=== PATIENT | male | born 1945 | race Caucasian/White ===

== ENCOUNTER 2017-07-23 15:16 | Inpatient (IN) | payer MEDICARE ==
--- NOTE | 2017-07-23 16:56 | C.PDOC ---
History Of Present Illness 71 year old male sent to ED by PMD, Dr. Hightower, for evaluation of dysuria, and hypothermia since yesterday. Pt states his temperature at PMD office was about 93-94. Otherwise, denies n/v/d, abdominal pain, back pain, urinary frequency, or hematuria. Time Seen by Provider: 07/23/17 16:31 Chief Complaint (Nursing): Male Genitourinary History Per: Patient History/Exam Limitations: no limitations Onset/Duration Of Symptoms: Days Current Symptoms Are (Timing): Still Present Associated Symptoms: Urinary Symptoms. denies: Loss Of Appetite, Back Pain, Chest Pain, Constipation Alleviating Factors: None Recent travel outside of the [place]: No Additional History Per: Patient Past Medical History Reviewed: Historical Data, Nursing Documentation, Vital Signs Vital Signs: Last Vital Signs Temp 97.9 F 07/23/17 18:26 Pulse 67 07/23/17 18:26 Resp 16 07/23/17 18:26 BP 150/65 07/23/17 18:26 Pulse Ox 100 07/23/17 18:43 Family History: States: Unknown Family Hx - Social History Hx Alcohol Use: Yes Hx Substance Use: No - Immunization History Hx Tetanus Toxoid Vaccination: No Hx Influenza Vaccination: No Hx Pneumococcal Vaccination: No Review Of Systems Except As Marked, All Systems Reviewed And Found Negative. Constitutional: Positive for: Chills. Negative for: Fever Cardiovascular: Negative for: Chest Pain, Palpitations Respiratory: Negative for: Cough, Shortness of Breath Gastrointestinal: Negative for: Nausea, Vomiting, Abdominal Pain, Diarrhea Genitourinary: Positive for: Dysuria. Negative for: Frequency, Hematuria, Penile Discharge Musculoskeletal: Negative for: Back Pain Neurological: Negative for: Headache, Dizziness Physical Exam - Physical Exam Appears: Non-toxic, No Acute Distress Skin: Normal Color, Warm, Dry Head: Atraumatic, Normacephalic Eye(s): bilateral: Normal Inspection Oral Mucosa: Moist Neck: Supple Cardiovascular: Rhythm Regular, No Murmur Respiratory: Normal Breath Sounds, No Rales, No Rhonchi, No Wheezing Gastrointestinal/Abdominal: Soft, No Tenderness Back: Normal Inspection, No CVA Tenderness Extremity: Normal ROM, No Pedal Edema Neurological/Psych: Oriented x3, Normal Speech ED Course And Treatment - Laboratory Results Result Diagrams: 07/23/17 17:32 07/23/17 17:32 O2 Sat by Pulse Oximetry: 100 (RA) Pulse Ox Interpretation: Normal Progress Note: Blood work, UA, EKG ordered and reviewed. On reassessment, patient is resting comfortably, and is in no acute distress. case was d/w Pt's PMD who sts patient recently started on Acetazolomide for glaucoma and it might be a cause of metabolic acidosis. requested patient to go to [place] for observation on the service. was paged at 18: 40, called back, accepted patient to [place] for observation and IV hydration. Disposition - Disposition Disposition: HOSPITALIZED Disposition Time: 18:43 Condition: FAIR Forms: [facility] (Belarusian) - Clinical Impression Clinical Impression: Dysuria, Metabolic acidosis - PA / DATA COMMUNICATIONS ANALYST / Resident Statement MD/DO has reviewed & agrees with the documentation as recorded. - Scribe Statement The provider has reviewed the documentation as recorded by the Scribe Alondra Mcclelland All medical record entries made by the Scribe were at my direction and personally dictated by me. I have reviewed the chart and agree that the record accurately reflects my personal performance of the history, physical exam, medical decision making, and the department course for this patient. I have also personally directed, reviewed, and agree with the discharge instructions and disposition. Decision To Admit - Pt Status Changed To: Hospital Disposition Of: Observation - . Bed Request Type: Regular Admitting Physician: Danny Martin Patient Diagnosis: Dysuria, Metabolic acidosis
[2017-07-23 17:31] LABS: VENOUS BLOOD GAS BASE EXCESS -10.4 mmol/L (0.0-2.0); VENOUS BLOOD GAS PCO2 50 mmHg (40-60); VENOUS BLOOD GAS PO2 13 mm/Hg (30-55); VENOUS BLOOD PH 7.17 (7.32-7.43)
[2017-07-23 17:37] LABS: BASO # 0.1 K/uL (0.0-0.2); BASO % 0.6 % (0.0-2.0); EOS # 0.2 K/uL (0.0-0.7); EOS % 1.9 % (0.0-4.0); LYMPH # 1.9 K/uL (1.0-4.3); LYMPH % 21.2 % (20.0-40.0); MEAN CELL VOLUME 89.3 fL (80.0-94.0); MEAN CORPUSCULAR HEMOGLOBIN 30.2 pg (27.0-31.0); MEAN CORPUSCULAR HGB CONC 33.8 g/dL (33.0-37.0); MEAN PLATELET VOLUME 8.9 fL (7.2-11.7); MONO # 0.4 K/uL (0.0-0.8); MONO % 4.7 % (0.0-10.0); NEUT # 6.5 K/uL (1.8-7.0); NEUT % 71.6 % (50.0-75.0); RBC 5.3 Mil/uL (4.40-5.90); RED CELL DISTRIBUTION WIDTH 13.1 % (11.5-14.5); WHITE BLOOD COUNT 9.1 K/uL (4.8-10.8)
[2017-07-23 17:44] LABS: URINE BILIRUBIN NEGATIVE (NEGATIVE); URINE BLOOD NEGATIVE (NEGATIVE); URINE CLARITY Clear (Clear); URINE COLOR Straw (YELLOW); URINE GLUCOSE (UA) 3+ mg/dL (Normal); URINE LEUKOCYTE ESTERASE NEG Leu/uL (Negative); URINE NITRATE NEGATIVE (NEGATIVE); URINE PROTEIN NEGATIVE (NEGATIVE); URINE UROBILINOGEN NORMAL mg/dL (0.2-1.0)
[2017-07-23 17:46] LABS: PROTHROMBIN TIME 11.6 SECONDS (9.7-12.2)
[2017-07-23 18:12] LABS: ALB/GLOB RATIO 1.2 (1.0-2.1); ALBUMIN 4.6 g/dL (3.5-5.0); ALT/SGPT 31 U/L (21-72); AST/SGOT 26 U/L (17-59); BLOOD UREA NITROGEN 15 mg/dL (9-20); CALCIUM 9.1 mg/dl (8.6-10.4); GFR AFRICAN-AMERICAN > 60; GFR NON-AFRICAN AMERICAN > 60; MAGNESIUM 1.8 mg/dL (1.6-2.3)
--- NOTE | 2017-07-23 18:17 | RAD ---
HISTORY: hypotermia by PMD, Metab Acidosis COMPARISON: No prior. TECHNIQUE: Chest PA and lateral FINDINGS: LUNGS: No active pulmonary disease. PLEURA: No significant pleural effusion identified. No pneumothorax apparent. CARDIOVASCULAR: Normal. OSSEOUS STRUCTURES: No significant abnormalities. VISUALIZED UPPER ABDOMEN: Normal. OTHER FINDINGS: None. IMPRESSION: No active disease.
[2017-07-23 18:30] LABS: ABG ALLEN TEST YES; ARTERIAL BLOOD GAS HCO3 15.3 mmol/L (21-28); ARTERIAL BLOOD GAS HEMOGLOBIN 14.5 g/dL (11.7-17.4); ARTERIAL BLOOD GAS O2 SAT 97.3 % (95-98); ARTERIAL BLOOD GAS PCO2 26 mm/Hg (35-45); ARTERIAL BLOOD GAS PH 7.29 (7.35-7.45); ARTERIAL BLOOD GAS PO2 124 mm/Hg (80-100); ARTERIAL BLOOD GAS TCO2 13.3 mmol/L (22-28)
[2017-07-23] MEDS ORDERED: Sodium Chloride 0.9% 1,000 ML IV STA (18:33)
[2017-07-23 20:36] VITALS: RESP 20
[2017-07-23] MEDS ORDERED: Dextrose 5%/0.9% NS 1,000 ML IV SCH (21:00)
--- NOTE | 2017-07-23 22:47 | CP.PCM.HP ---
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 Hightower, for evaluation of dysuria, and hypothermia since yesterday. Pt states his temperature at PMD office was about 93-94. Otherwise, denies n/v/d, abdominal pain, back pain, urinary frequency, or hematuria.He was found to be weak, alterred, confused, tacycardic in PMD office also complains of bad taste in mouth denies any fever, chills, chest pain Present on Admission - Present on Admission Any Indicators Present on Admission: Yes Review of Systems - Review of Systems Systems not reviewed;Unavailable: Acuity of Condition - Constitutional Constitutional: Fatigue, Lethargy, Malaise - EENT Eyes: Change in Vision Ears: absent: As Per HPI, Decreased Hearing, Ear Discharge, Ear Pain, Tinnitus, Abnormal Hearing, Disequilibrium, Dizziness, Other Nose/Mouth/Throat: absent: As Per HPI, Epistaxis, Nasal Congestion, Nasal Discharge, Nasal Obstruction, Nasal Trauma, Nose Pain, Post Nasal Drip, Sinus Pain, Sinus Pressure, Bleeding Gums, Change in Voice, Dental Pain, Dry Mouth, Dysphagia, Halitosis, Hoarsness, Lip Swelling, Mouth Lesions, Mouth Pain, Odynophagia, Sore Throat, Throat Swelling, Tongue Swelling, Facial Pain, Neck Pain, Neck Mass, Other - Cardiovascular Cardiovascular: absent: As Per HPI, Acrocyanosis, Chest Pain, Chest Pain at Rest , Chest Pain with Activity, Claudication, Diaphoresis, Dyspnea, Dyspnea on Exertion, Edema, Irregular Heart Rhythm, Pain Radiating to Arm/Neck/Jaw, Leg Edema, Leg Ulcers, Lightheadedness, Orthopnea, Palpitations, Paroxysmal Nocturnal Dyspnea, Pedal Edema, Radiating Pain, Rapid Heart Rate, Slow Heart Rate, Syncope, Other - Respiratory Respiratory: absent: As Per HPI, Cough, Dyspnea, Hemoptysis, Dyspnea on Exertion , Wheezing, Snoring, Stridor, Pain on Inspiration, Chest Congestion, Excessive Mucous Production, Change in Mucous Color, Pain with Coughing, Other - Gastrointestinal Gastrointestinal: absent: As Per HPI, Abdominal Pain, Belching, Bloating, Change in Bowel Habits, Change in Stool Character, Coffee Ground Emesis, Constipation, Cramping, Diarrhea, Dyspepsia, Dysphagia, Early Satiety, Excessive Flatus, Fecal Incontinence, Heartburn, Hematemesis, Hematochezia, Loose Stools, Melena, Nausea, Odynophagia, Temesmus, Vomiting, Other - Genitourinary Genitourinary: Dysuria Past Patient History - Past Social History Smoking Status: Never Smoked - ENDOCRINE/METABOLIC Hx Diabetes Mellitus Type 2: Yes - PSYCHIATRIC Hx Substance Use: No - SURGICAL HISTORY Hx Surgeries: No - ANESTHESIA Hx Anesthesia: No Meds Allergies/Adverse Reactions: Allergies Allergy/AdvReac Type Severity Reaction Status Date / Time No Known Allergies Allergy Verified 07/23/17 16:03 Physical Exam - Constitutional Appears: No Acute Distress - Head Exam Head Exam: ATRAUMATIC, NORMAL INSPECTION, NORMOCEPHALIC - Eye Exam Eye Exam: EOMI, Normal appearance, PERRL Pupil Exam: NORMAL ACCOMODATION, PERRL - Respiratory Exam Respiratory Exam: Clear to Auscultation Bilateral, NORMAL BREATHING PATTERN - Cardiovascular Exam Cardiovascular Exam: REGULAR RHYTHM - GI/Abdominal Exam GI & Abdominal Exam: Normal Bowel Sounds, Soft. absent: Tenderness Results - Vital Signs Recent Vital Signs: Last Vital Signs Temp 97.3 F L 07/23/17 20:34 Pulse 61 07/23/17 20:34 Resp 20 07/23/17 20:34 BP 157/82 H 07/23/17 20:34 Pulse Ox 100 07/23/17 20:34 - Labs Result Diagrams: 07/24/17 07:55 07/24/17 07:55 Labs: Laboratory Results - last 24 hr 07/23/17 07/23/17 07/23/17 17:25 17:32 17:32 WBC 9.1 RBC 5.30 Hgb 16.0 Hct 47.3 MCV 89.3 MCH 30.2 MCHC 33.8 RDW 13.1 Plt Count 328 MPV 8.9 Neut % (Auto) 71.6 Lymph % (Auto) 21.2 Stone % (Auto) 4.7 Eos % (Auto) 1.9 Baso % (Auto) 0.6 Neut # 6.5 Lymph # 1.9 Stone # 0.4 Eos # 0.2 Baso # 0.1 PT INR APTT Puncture Site pCO2 pO2 13 L HCO3 ABG pH ABG Total CO2 ABG O2 Saturation ABG Base Excess ABG Hemoglobin ABG Carboxyhemoglobin POC ABG HHb (Measured) ABG Methemoglobin Osbaldo Test VBG pH 7.17 L* VBG pCO2 50 VBG HCO3 14.4 VBG Total CO2 19.7 L VBG O2 Sat (Calc) 19.2 L VBG Base Excess -10.4 L VBG Potassium 3.9 A-a O2 Difference Respiratory Index Hgb O2 Saturation Sodium 137.0 135 Chloride 108.0 H 105 Glucose 225 H Lactate 1.2 FiO2 Crit Value Called To Doyle aaron Crit Value Called By Sherrill naik dining services director Crit Value Read Back Y Blood Gas Notified Time 1730 Potassium 3.9 Carbon Dioxide 18 L Anion Gap 16 BUN 15 Creatinine 0.8 Est GFR ( Amer) > 60 Est GFR (Non-Af Amer) > 60 Random Glucose 218 H Lactic Acid Calcium 9.1 Phosphorus 2.8 Magnesium 1.8 Total Bilirubin 0.6 AST 26 ALT 31 Alkaline Phosphatase 75 Total Protein 8.4 H Albumin 4.6 Globulin 3.8 Albumin/Globulin Ratio 1.2 Venous Blood Potassium 3.9 Urine Color Urine Clarity Urine pH Ur Specific [place] Urine Protein Urine Glucose (UA) Urine Ketones Urine Blood Urine Nitrate Urine Bilirubin Urine Urobilinogen Ur Leukocyte Esterase Urine WBC (Auto) Urine RBC (Auto) Salicylates Alcohol, Quantitative 07/23/17 07/23/17 07/23/17 17:32 17:32 17:38 WBC RBC Hgb Hct MCV MCH MCHC RDW Plt Count MPV Neut % (Auto) Lymph % (Auto) Stone % (Auto) Eos % (Auto) Baso % (Auto) Neut # Lymph # Stone # Eos # Baso # PT 11.6 INR 1.0 APTT 34 Puncture Site pCO2 pO2 HCO3 ABG pH ABG Total CO2 ABG O2 Saturation ABG Base Excess ABG Hemoglobin ABG Carboxyhemoglobin POC ABG HHb (Measured) ABG Methemoglobin Osbaldo Test VBG pH VBG pCO2 VBG HCO3 VBG Total CO2 VBG O2 Sat (Calc) VBG Base Excess VBG Potassium A-a O2 Difference Respiratory Index Hgb O2 Saturation Sodium Chloride Glucose Lactate FiO2 Crit Value Called To Crit Value Called By Crit Value Read Back Blood Gas Notified Time Potassium Carbon Dioxide Anion Gap BUN Creatinine Est GFR ( Amer) Est GFR (Non-Af Amer) Random Glucose Lactic Acid 0.9 Calcium Phosphorus Magnesium Total Bilirubin AST ALT Alkaline Phosphatase Total Protein Albumin Globulin Albumin/Globulin Ratio Venous Blood Potassium Urine Color Straw Urine Clarity Clear Urine pH 6.0 Ur Specific [place] 1.020 Urine Protein Negative Urine Glucose (UA) 3+ H Urine Ketones Negative Urine Blood Negative Urine Nitrate Negative Urine Bilirubin Negative Urine Urobilinogen Normal Ur Leukocyte Esterase Neg Urine WBC (Auto) 1 Urine RBC (Auto) 1 Salicylates Alcohol, Quantitative 07/23/17 07/23/17 07/23/17 18:20 18:48 18:55 WBC RBC Hgb Hct MCV MCH MCHC RDW Plt Count MPV Neut % (Auto) Lymph % (Auto) Stone % (Auto) Eos % (Auto) Baso % (Auto) Neut # Lymph # Stone # Eos # Baso # PT INR APTT Puncture Site Lba pCO2 26 L pO2 124 H HCO3 15.3 L ABG pH 7.29 L ABG Total CO2 13.3 L ABG O2 Saturation 97.3 ABG Base Excess -12.3 L ABG Hemoglobin 14.5 ABG Carboxyhemoglobin 0.3 L POC ABG HHb (Measured) 2.7 ABG Methemoglobin 0.1 Osbaldo Test Yes VBG pH VBG pCO2 VBG HCO3 VBG Total CO2 VBG O2 Sat (Calc) VBG Base Excess VBG Potassium A-a O2 Difference -7.0 Respiratory Index -0.1 Hgb O2 Saturation 96.9 Sodium Chloride Glucose Lactate FiO2 21.0 Crit Value Called To Crit Value Called By Crit Value Read Back Blood Gas Notified Time Potassium Carbon Dioxide Anion Gap BUN Creatinine Est GFR ( Amer) Est GFR (Non-Af Amer) Random Glucose Lactic Acid Calcium Phosphorus Magnesium Total Bilirubin AST ALT Alkaline Phosphatase Total Protein Albumin Globulin Albumin/Globulin Ratio Venous Blood Potassium Urine Color Urine Clarity Urine pH Ur Specific [place] Urine Protein Urine Glucose (UA) Urine Ketones Urine Blood Urine Nitrate Urine Bilirubin Urine Urobilinogen Ur Leukocyte Esterase Urine WBC (Auto) Urine RBC (Auto) Salicylates < 1.0 Alcohol, Quantitative < 20 H Assessment & Plan (1) Drug side effects Assessment and Plan: Rule out fanconis syndrome due to Tenofovir renal consult Status: Acute (2) Dysuria Status: Acute (3) Metabolic acidosis Status: Acute
[2017-07-23] MEDS: Sodium Bicarbonate 8.4% 150 MEQ in Dextrose 5% In Water 1,000 ML IV SCH (22:49)
[2017-07-24 08:16] LABS: BASO % 0.7 % (0.0-2.0); EOS # 0.1 K/uL (0.0-0.7); LYMPH % 26.5 % (20.0-40.0); MEAN CORPUSCULAR HEMOGLOBIN 30.3 pg (27.0-31.0); MEAN CORPUSCULAR HGB CONC 34.8 g/dL (33.0-37.0); MEAN PLATELET VOLUME 8.9 fL (7.2-11.7); MONO # 0.5 K/uL (0.0-0.8); MONO % 7.3 % (0.0-10.0); NEUT # 4.8 K/uL (1.8-7.0); NEUT % 63.5 % (50.0-75.0); RBC 4.47 Mil/uL (4.40-5.90); RED CELL DISTRIBUTION WIDTH 12.8 % (11.5-14.5); WHITE BLOOD COUNT 7.5 K/uL (4.8-10.8)
[2017-07-24 08:30] LABS: BLOOD UREA NITROGEN 11 mg/dL (9-20); GFR AFRICAN-AMERICAN > 60; GFR NON-AFRICAN AMERICAN > 60; HEMOGLOBIN 13.5 g/dL (12.0-18.0)
[2017-07-24] MEDS: Enoxaparin 40 mg Syringe SC SCH (09:51)
[2017-07-24] MEDS: Sodium Bicarbonate 8.4% 150 MEQ in Dextrose 5% In Water 1,000 ML IV SCH ×2 (10:30→20:30)
--- NOTE | 2017-07-24 10:33 | CP.PCM.CON ---
History of Present Illness - History of Present Illness History of Present Illness: pt is seen and examined, full consult is dictated #[id number] r/o fanconi syndrome due to tenofovir , pt is on tenofovir for ch. hept.b from [facility] check u po4, serum phos, cr, will calculate FE phosphorous c/w iv nahco3 drip check u/s kidneys Past Patient History - Past Social History Smoking Status: Never Smoked - ENDOCRINE/METABOLIC Hx Diabetes Mellitus Type 2: Yes - PSYCHIATRIC Hx Substance Use: No - SURGICAL HISTORY Hx Surgeries: No - ANESTHESIA Hx Anesthesia: No Meds Allergies/Adverse Reactions: Allergies Allergy/AdvReac Type Severity Reaction Status Date / Time No Known Allergies Allergy Verified 07/23/17 16:03 - Medications Medications: Current Medications Enoxaparin Sodium (Lovenox) 40 mg SC DAILY [facility] Last Admin: 07/24/17 09:51 Dose: Not Given Sodium Bicarbonate 150 meq/ (Dextrose) 1,150 mls @ 100 mls/hr IV .[id number] [facility] Last Admin: 07/24/17 10:30 Dose: 100 mls/hr Pneumococcal Polyvalent Vaccine (Pneumovax 23 Vaccine) 0.5 ml IM .ONCE ONE Stop: 07/26/17 10:01 Results - Vital Signs Recent Vital Signs: Last Vital Signs Temp 97.7 F 07/24/17 08:02 Pulse 90 07/24/17 08:02 Resp 20 07/24/17 08:02 BP 117/65 07/24/17 08:02 Pulse Ox 92 L 07/24/17 08:02 - Labs Result Diagrams: 07/24/17 07:55 07/24/17 07:55 Labs: Laboratory Results - last 24 hr 07/23/17 07/23/17 07/23/17 17:25 17:32 17:32 WBC 9.1 RBC 5.30 Hgb 16.0 Hct 47.3 MCV 89.3 MCH 30.2 MCHC 33.8 RDW 13.1 Plt Count 328 MPV 8.9 Neut % (Auto) 71.6 Lymph % (Auto) 21.2 Bradley % (Auto) 4.7 Eos % (Auto) 1.9 Baso % (Auto) 0.6 Neut # 6.5 Lymph # 1.9 Bradley # 0.4 Eos # 0.2 Baso # 0.1 PT INR APTT Puncture Site pCO2 pO2 13 L HCO3 ABG pH ABG Total CO2 ABG O2 Saturation ABG Base Excess ABG Hemoglobin ABG Carboxyhemoglobin POC ABG HHb (Measured) ABG Methemoglobin Osbaldo Test VBG pH 7.17 L* VBG pCO2 50 VBG HCO3 14.4 VBG Total CO2 19.7 L VBG O2 Sat (Calc) 19.2 L VBG Base Excess -10.4 L VBG Potassium 3.9 A-a O2 Difference Respiratory Index Hgb O2 Saturation Sodium 137.0 135 Chloride 108.0 H 105 Glucose 225 H Lactate 1.2 FiO2 Crit Value Called To Doyle aaron Crit Value Called By Sherrill naik special diet cook Crit Value Read Back Y Blood Gas Notified Time 1730 Potassium 3.9 Carbon Dioxide 18 L Anion Gap 16 BUN 15 Creatinine 0.8 Est GFR ( Amer) > 60 Est GFR (Non-Af Amer) > 60 POC Glucose (mg/dL) Random Glucose 218 H Lactic Acid Calcium 9.1 Phosphorus 2.8 Magnesium 1.8 Total Bilirubin 0.6 AST 26 ALT 31 Alkaline Phosphatase 75 Total Protein 8.4 H Albumin 4.6 Globulin 3.8 Albumin/Globulin Ratio 1.2 Venous Blood Potassium 3.9 Urine Color Urine Clarity Urine pH Ur Specific [place] Urine Protein Urine Glucose (UA) Urine Ketones Urine Blood Urine Nitrate Urine Bilirubin Urine Urobilinogen Ur Leukocyte Esterase Urine WBC (Auto) Urine RBC (Auto) Urine Osmolality Ur Random Sodium Ur Random Potassium Salicylates Alcohol, Quantitative 07/23/17 07/23/17 07/23/17 17:32 17:32 17:38 WBC RBC Hgb Hct MCV MCH MCHC RDW Plt Count MPV Neut % (Auto) Lymph % (Auto) [place] % (Auto) Eos % (Auto) Baso % (Auto) Neut # Lymph # Bradley # Eos # Baso # PT 11.6 INR 1.0 APTT 34 Puncture Site pCO2 pO2 HCO3 ABG pH ABG Total CO2 ABG O2 Saturation ABG Base Excess ABG Hemoglobin ABG Carboxyhemoglobin POC ABG HHb (Measured) ABG Methemoglobin Osbaldo Test VBG pH VBG pCO2 VBG HCO3 VBG Total CO2 VBG O2 Sat (Calc) VBG Base Excess VBG Potassium A-a O2 Difference Respiratory Index Hgb O2 Saturation Sodium Chloride Glucose Lactate FiO2 Crit Value Called To Crit Value Called By Crit Value Read Back Blood Gas Notified Time Potassium Carbon Dioxide Anion Gap BUN Creatinine Est GFR ( Amer) Est GFR (Non-Af Amer) POC Glucose (mg/dL) Random Glucose Lactic Acid 0.9 Calcium Phosphorus Magnesium Total Bilirubin AST ALT Alkaline Phosphatase Total Protein Albumin Globulin Albumin/Globulin Ratio Venous Blood Potassium Urine Color Straw Urine Clarity Clear Urine pH 6.0 Ur Specific [place] 1.020 Urine Protein Negative Urine Glucose (UA) 3+ H Urine Ketones Negative Urine Blood Negative Urine Nitrate Negative Urine Bilirubin Negative Urine Urobilinogen Normal Ur Leukocyte Esterase Neg Urine WBC (Auto) 1 Urine RBC (Auto) 1 Urine Osmolality Ur Random Sodium Ur Random Potassium Salicylates Alcohol, Quantitative 07/23/17 07/23/17 07/23/17 18:20 18:48 18:55 WBC RBC Hgb Hct MCV MCH MCHC RDW Plt Count MPV Neut % (Auto) Lymph % (Auto) [place] % (Auto) Eos % (Auto) Baso % (Auto) Neut # Lymph # Bradley # Eos # Baso # PT INR APTT Puncture Site Lba pCO2 26 L pO2 124 H HCO3 15.3 L ABG pH 7.29 L ABG Total CO2 13.3 L ABG O2 Saturation 97.3 ABG Base Excess -12.3 L ABG Hemoglobin 14.5 ABG Carboxyhemoglobin 0.3 L POC ABG HHb (Measured) 2.7 ABG Methemoglobin 0.1 Osbaldo Test Yes VBG pH VBG pCO2 VBG HCO3 VBG Total CO2 VBG O2 Sat (Calc) VBG Base Excess VBG Potassium A-a O2 Difference -7.0 Respiratory Index -0.1 Hgb O2 Saturation 96.9 Sodium Chloride Glucose Lactate FiO2 21.0 Crit Value Called To Crit Value Called By Crit Value Read Back Blood Gas Notified Time Potassium Carbon Dioxide Anion Gap BUN Creatinine Est GFR ( Amer) Est GFR (Non-Af Amer) POC Glucose (mg/dL) Random Glucose Lactic Acid Calcium Phosphorus Magnesium Total Bilirubin AST ALT Alkaline Phosphatase Total Protein Albumin Globulin Albumin/Globulin Ratio Venous Blood Potassium Urine Color Urine Clarity Urine pH Ur Specific [place] Urine Protein Urine Glucose (UA) Urine Ketones Urine Blood Urine Nitrate Urine Bilirubin Urine Urobilinogen Ur Leukocyte Esterase Urine WBC (Auto) Urine RBC (Auto) Urine Osmolality Ur Random Sodium Ur Random Potassium Salicylates < 1.0 Alcohol, Quantitative < 20 H 07/24/17 07/24/17 07/24/17 01:11 01:11 07:04 WBC RBC Hgb Hct MCV MCH MCHC RDW Plt Count MPV Neut % (Auto) Lymph % (Auto) [place] % (Auto) Eos % (Auto) Baso % (Auto) Neut # Lymph # [place] # Eos # Baso # PT INR APTT Puncture Site pCO2 pO2 HCO3 ABG pH ABG Total CO2 ABG O2 Saturation ABG Base Excess ABG Hemoglobin ABG Carboxyhemoglobin POC ABG HHb (Measured) ABG Methemoglobin Osbaldo Test VBG pH VBG pCO2 VBG HCO3 VBG Total CO2 VBG O2 Sat (Calc) VBG Base Excess VBG Potassium A-a O2 Difference Respiratory Index Hgb O2 Saturation Sodium Chloride Glucose Lactate FiO2 Crit Value Called To Crit Value Called By Crit Value Read Back Blood Gas Notified Time Potassium Carbon Dioxide Anion Gap BUN Creatinine Est GFR ( Amer) Est GFR (Non-Af Amer) POC Glucose (mg/dL) 182 H Random Glucose Lactic Acid Calcium Phosphorus Magnesium Total Bilirubin AST ALT Alkaline Phosphatase Total Protein Albumin Globulin Albumin/Globulin Ratio Venous Blood Potassium Urine Color Urine Clarity Urine pH Ur Specific [place] Urine Protein Urine Glucose (UA) Urine Ketones Urine Blood Urine Nitrate Urine Bilirubin Urine Urobilinogen Ur Leukocyte Esterase Urine WBC (Auto) Urine RBC (Auto) Urine Osmolality 310 Ur Random Sodium 71 Ur Random Potassium 15.2 Salicylates Alcohol, Quantitative 07/24/17 07/24/17 07:55 07:55 WBC 7.5 RBC 4.47 Hgb 13.5 D Hct 38.9 MCV 87.0 D MCH 30.3 MCHC 34.8 RDW 12.8 Plt Count 251 MPV 8.9 Neut % (Auto) 63.5 Lymph % (Auto) 26.5 Bradley % (Auto) 7.3 Eos % (Auto) 2.0 Baso % (Auto) 0.7 Neut # 4.8 Lymph # 2.0 Bradley # 0.5 Eos # 0.1 Baso # 0.0 PT INR APTT Puncture Site pCO2 pO2 HCO3 ABG pH ABG Total CO2 ABG O2 Saturation ABG Base Excess ABG Hemoglobin ABG Carboxyhemoglobin POC ABG HHb (Measured) ABG Methemoglobin Osbaldo Test VBG pH VBG pCO2 VBG HCO3 VBG Total CO2 VBG O2 Sat (Calc) VBG Base Excess VBG Potassium A-a O2 Difference Respiratory Index Hgb O2 Saturation Sodium 133 Chloride 106 Glucose Lactate FiO2 Crit Value Called To Crit Value Called By Crit Value Read Back Blood Gas Notified Time Potassium 3.2 L Carbon Dioxide 20 L Anion Gap 11 BUN 11 Creatinine 0.8 Est GFR ( Amer) > 60 Est GFR (Non-Af Amer) > 60 POC Glucose (mg/dL) Random Glucose 188 H Lactic Acid Calcium 8.0 L Phosphorus Magnesium Total Bilirubin AST ALT Alkaline Phosphatase Total Protein Albumin Globulin Albumin/Globulin Ratio Venous Blood Potassium Urine Color Urine Clarity Urine pH Ur Specific [place] Urine Protein Urine Glucose (UA) Urine Ketones Urine Blood Urine Nitrate Urine Bilirubin Urine Urobilinogen Ur Leukocyte Esterase Urine WBC (Auto) Urine RBC (Auto) Urine Osmolality Ur Random Sodium Ur Random Potassium Salicylates Alcohol, Quantitative
[2017-07-24] MEDS ORDERED: Potassium Chloride 20 mEq ER Tab PO STA (11:44)
--- NOTE | 2017-07-24 14:17 | US ---
PROCEDURE: Ultrasound of the Kidneys HISTORY: acidosis, r/o stones COMPARISON: None available. TECHNIQUE: Sonogram of the kidneys. FINDINGS: RIGHT KIDNEY: Measures: 10.1 x 5.3 x 5.0 cm. Normal in size, contour ; mild increased echogenicity. Mid-upper pole obstructing calculus estimated 1.2 x 0.5 x 0.6 cm. No appreciated solid mass lesion or hydronephrosis visualized. LEFT KIDNEY: Measures: 10.6 x 5.2 x 5.0 cm. Normal in size, contour ; mild increased echogenicity. Mid to lower pole stone possibly cluster of stones -conglomerate measures 9 x 5 x 5 mm. No appreciated solid mass lesion or hydronephrosis visualized. OTHER FINDINGS: None. IMPRESSION: Bilateral renal calculi - nonobstructing Bilateral increased renal echogenicity -can be seen with medical renal disease
[2017-07-24 15:45] LABS: CREATININE, RANDOM URINE 16.6 mg/dL
[2017-07-24 18:03] LABS: HEPATITIS B CORE AB Negative (NEGATIVE)
[2017-07-24 18:05] LABS: HEPATITIS A IGM NEGATIVE (NEGATIVE); HEPATITIS B CORE AB Negative (NEGATIVE)
[2017-07-24 18:17] LABS: HEPATITIS C ANTIBODY Negative (NEGATIVE)
[2017-07-24 19:55] LABS: HEPATITIS B SURFACE AG POSITIVE (NEGATIVE)
--- NOTE | 2017-07-24 23:56 | CP.PCM.PN ---
Subjective - Date & Time of Evaluation Date of Evaluation: 07/24/17 Time of Evaluation: 17:00 - Subjective Subjective: pt seen and evalauted, is for renal consult to rule out fanconis syndrome Objective - Vital Signs/Intake and Output Vital Signs (last 24 hours): Temp Pulse Resp BP Pulse Ox 97.4 F L 71 20 132/74 100 07/24/17 21:05 07/24/17 21:05 07/24/17 21:05 07/24/17 21:05 07/24/17 15:15 Intake and Output: 07/24/17 07/25/17 18:59 06:59 Intake Total 1280 800 Balance 1280 800 - Medications Medications: Current Medications Acetazolamide (Diamox 250 Mg Tab) 500 mg PO BID [facility] Last Admin: 07/24/17 18:00 Dose: 500 mg Aspirin (Aspirin Chewable) 81 mg PO DAILY [facility] Docusate Sodium (Colace) 100 mg PO BID [facility] Last Admin: 07/24/17 17:25 Dose: 100 mg Enoxaparin Sodium (Lovenox) 40 mg SC DAILY [facility] Last Admin: 07/24/17 09:51 Dose: Not Given Ferrous Sulfate (Feosol) 325 mg PO DAILY [facility] Last Admin: 07/24/17 17:25 Dose: 4 mg Sodium Bicarbonate 150 meq/ (Dextrose) 1,150 mls @ 100 mls/hr IV .[id number] [facility] Last Admin: 07/24/17 20:30 Dose: 100 mls/hr [facility] ([facility]uc[facility]) [facility] Last Admin: 07/24/17 17:26 Dose: 1,000 mg Pantoprazole Sodium (Protonix Ec Tab) 40 mg PO DAILY [facility] Pioglitazone HCl (Actos) 30 mg PO DAILY [facility] Pneumococcal Polyvalent Vaccine (Pneumovax 23 Vaccine) 0.5 ml IM .ONCE ONE Stop: 07/26/17 10:01 Sitagliptin Phosphate ([facility]ia) [facility] - Labs Labs: 07/24/17 07:55 07/24/17 07:55 PT 11.6 SECONDS (9.7-12.2) 07/23/17 17:32 INR 1.0 07/23/17 17:32 APTT 34 SECONDS (21-34) 07/23/17 17:32 - Constitutional Appears: No Acute Distress - Head Exam Head Exam: ATRAUMATIC, NORMAL INSPECTION, NORMOCEPHALIC - Eye Exam Eye Exam: EOMI, Normal appearance, PERRL Pupil Exam: NORMAL ACCOMODATION, PERRL - Respiratory Exam Respiratory Exam: Clear to Ausculation Bilateral, NORMAL BREATHING PATTERN - Cardiovascular Exam Cardiovascular Exam: REGULAR RHYTHM, +S1, +S2. absent: Murmur - GI/Abdominal Exam GI & Abdominal Exam: Soft, Normal Bowel Sounds. absent: Tenderness Assessment and Plan (1) Drug side effects Status: Acute (2) Dysuria Status: Acute (3) Metabolic acidosis Status: Acute
--- NOTE | 2017-07-25 | CARD ---
APPROVED REPORT EKG Measurement Heart [id number] <Conclusion> Sinus bradycardia Cannot rule out Anterior infarct, age undetermined Abnormal ECG
[2017-07-25 05:19] LABS: URINE BACTERIA RARE (<OCC); URINE BILIRUBIN NEGATIVE (NEGATIVE); URINE BLOOD NEGATIVE (NEGATIVE); URINE CLARITY Clear (Clear); URINE COLOR Colorless (YELLOW); URINE GLUCOSE (UA) 3+ mg/dL (Normal); URINE LEUKOCYTE ESTERASE NEG Leu/uL (Negative); URINE NITRATE NEGATIVE (NEGATIVE); URINE PROTEIN NEGATIVE (NEGATIVE); URINE UROBILINOGEN NORMAL mg/dL (0.2-1.0)
[2017-07-25 07:47] LABS: BASO # 0.1 K/uL (0.0-0.2); BASO % 0.8 % (0.0-2.0); EOS # 0.2 K/uL (0.0-0.7); EOS % 3.1 % (0.0-4.0); LYMPH # 2.8 K/uL (1.0-4.3); LYMPH % 37.4 % (20.0-40.0); MEAN CELL VOLUME 87.4 fL (80.0-94.0); MEAN CORPUSCULAR HEMOGLOBIN 30.8 pg (27.0-31.0); MEAN CORPUSCULAR HGB CONC 35.3 g/dL (33.0-37.0); MONO # 0.7 K/uL (0.0-0.8); MONO % 9.1 % (0.0-10.0); NEUT # 3.7 K/uL (1.8-7.0); NEUT % 49.6 % (50.0-75.0); NRBC % 0.1 % (0.0-2.0); RBC 4.21 Mil/uL (4.40-5.90); WHITE BLOOD COUNT 7.5 K/uL (4.8-10.8)
[2017-07-25 08:00] LABS: ALB/GLOB RATIO 1.3 (1.0-2.1); ALBUMIN 3.2 g/dL (3.5-5.0); ALT/SGPT 29 U/L (21-72); AST/SGOT 16 U/L (17-59); BLOOD UREA NITROGEN 10 mg/dL (9-20); CALCIUM 8.3 mg/dl (8.6-10.4); GFR AFRICAN-AMERICAN > 60; GFR NON-AFRICAN AMERICAN > 60; MAGNESIUM 1.7 mg/dL (1.6-2.3)
[2017-07-25] MEDS: Sodium Bicarbonate 8.4% 150 MEQ in Dextrose 5% In Water 1,000 ML IV SCH (08:22)
[2017-07-25] MEDS ORDERED: Bisacodyl 5mg EC Tab PO ONE (09:34)
[2017-07-25] MEDS: Pantoprazole 40 mg EC Tab PO SCH (10:15)
[2017-07-25] MEDS: Potassium Chloride 20 mEq ER Tab PO SCH ×2 (10:16→13:08)
[2017-07-25] MEDS: Enoxaparin 40 mg Syringe SC SCH (10:17)
[2017-07-25 13:08] LABS: HEP B SURFACE AG CONF CONFIRMED POSITIVE
--- NOTE | 2017-07-25 16:01 | CP.PCM.CON ---
History of Present Illness - History of Present Illness History of Present Illness: 71 year old [place] male with h/o chronic hep B viral infection on tenofovir , diagnosed with glucoma and recently placed on acetolzamide sent to ED by PMD, Dr. Hightower, for evaluation of dysuria, and hypothermia since yesterday. Pt states his temperature at PMD office was about 93-94. seen by renal for metabolic acidosis r/o fANCONIS VS SEPSIS ON VIREAD FOR HEP B Review of Systems - Constitutional Constitutional: Anorexia, Chills, Malaise - EENT Eyes: absent: As Per HPI, Blind Spots, Blurred Vision, Change in Vision, Decreased Night Vision, Diplopia, Discharge, Dry Eye, Exophthalmos, Floaters, Irritation, Itchy Eyes, Loss of Peripheral Vision, Pain, Photophobia, Requires Corrective Lenses, Sees Flashes, Spots in Vision, Tunnel Vision, Other Visual Disturbances, Loss of Vision, Other Ears: absent: As Per HPI, Decreased Hearing, Ear Discharge, Ear Pain, Tinnitus, Abnormal Hearing, Disequilibrium, Dizziness, Other Nose/Mouth/Throat: absent: As Per HPI, Epistaxis, Nasal Congestion, Nasal Discharge, Nasal Obstruction, Nasal Trauma, Nose Pain, Post Nasal Drip, Sinus Pain, Sinus Pressure, Bleeding Gums, Change in Voice, Dental Pain, Dry Mouth, Dysphagia, Halitosis, Hoarsness, Lip Swelling, Mouth Lesions, Mouth Pain, Odynophagia, Sore Throat, Throat Swelling, Tongue Swelling, Facial Pain, Neck Pain, Neck Mass, Other - Cardiovascular Cardiovascular: absent: As Per HPI, Acrocyanosis, Chest Pain, Chest Pain at Rest , Chest Pain with Activity, Claudication, Diaphoresis, Dyspnea, Dyspnea on Exertion, Edema, Irregular Heart Rhythm, Pain Radiating to Arm/Neck/Jaw, Leg Edema, Leg Ulcers, Lightheadedness, Orthopnea, Palpitations, Paroxysmal Nocturnal Dyspnea, Pedal Edema, Radiating Pain, Rapid Heart Rate, Slow Heart Rate, Syncope, Other - Respiratory Respiratory: absent: As Per HPI, Cough, Dyspnea, Hemoptysis, Dyspnea on Exertion , Wheezing, Snoring, Stridor, Pain on Inspiration, Chest Congestion, Excessive Mucous Production, Change in Mucous Color, Pain with Coughing, Other - Gastrointestinal Gastrointestinal: absent: As Per HPI, Abdominal Pain, Belching, Bloating, Change in Bowel Habits, Change in Stool Character, Coffee Ground Emesis, Constipation, Cramping, Diarrhea, Dyspepsia, Dysphagia, Early Satiety, Excessive Flatus, Fecal Incontinence, Heartburn, Hematemesis, Hematochezia, Loose Stools, Melena, Nausea, Odynophagia, Temesmus, Vomiting, Other - Genitourinary Genitourinary: As Per HPI - Musculoskeletal Musculoskeletal: absent: As Per HPI, Abnormal Gait, Arthralgias, Atrophy, Back Pain, Deformity, Joint Swelling, Limited Range of Motion, Loss of Height, Muscle Cramps, Muscle Weakness, Myalgias, Neck Pain, Numbness, Radiating Pain into Limb, Stiffness, Tingling, Other - Integumentary Integumentary: absent: As Per HPI, Acne, Alopecia, Bleeding Lesions, Change in Hair, Change in Nails, Change in Pigmentation, Changing Lesions, Dry Skin, Erythema, Furuncle, Hirsutism, Lesions, New Lesions, Non-Healing Lesions, Photosensitivity, Pruritus, Rash, Skin Pain, Skin Ulcer, Sores, Striae, Swelling , Unusual Bruising, Wounds, Jaundice, Other - Neurological Neurological: absent: As Per HPI, Abnormal Gait, Abnormal Hearing, Abnormal Movements, Abnormal Speech, Behavioral Changes, Burning Sensations, Confusion, Convulsions, Disequilibrium, Dizziness, Numbness, Focal Weakness, Frequent Falls , Headaches, Lack of Coordination, Loss of Vision, Memory Loss, Paresthesias, Radicular Pain, Restless Legs, Sensory Deficit, Syncope, Tingling, Tremor, Vertigo, Weakness, Other Visual Disturbances, Other - Psychiatric Psychiatric: absent: As Per HPI, Abnormal Sleep Pattern, Anhedonia, Anxiety, Auditory Hallucinations, Behavioral Changes, Change in Appetite, Change in Libido, Confusion, Depression, Difficulty Concentrating, Hallucinations, Homicidal Ideation, Hopelessness, Irritability, Memory Loss, Mood Swings, Panic Attacks, Paranoia, Suicidal Ideation, Visual Hallucinations, Tactile Hallucinations, Other - Endocrine Endocrine: absent: As Per HPI, Change in Body Appearance, Change in Libido, Cold Intolorance, Deepening of Voice, Excessive Sweating, Fatigue, Flushing, Heat Intolorance, Increase in Ring/Shoe/Hat Size, Palpitations, Polydipsia, Polyphagia, Polyuria, Other - Hematologic/Lymphatic Hematologic: absent: As Per HPI, Easy Bleeding, Easy Bruising, Lymphadenopathy, Other Past Patient History - Past Social History Smoking Status: Never Smoked - ENDOCRINE/METABOLIC Hx Diabetes Mellitus Type 2: Yes - PSYCHIATRIC Hx Substance Use: No - SURGICAL HISTORY Hx Surgeries: No - ANESTHESIA Hx Anesthesia: No Meds Allergies/Adverse Reactions: Allergies Allergy/AdvReac Type Severity Reaction Status Date / Time No Known Allergies Allergy Verified 07/23/17 16:03 - Medications Medications: Current Medications Acetazolamide (Diamox 250 Mg Tab) 500 mg PO BID [facility] Last Admin: 07/25/17 10:19 Dose: 500 mg Aspirin (Aspirin Chewable) 81 mg PO DAILY [facility] Last Admin: 07/25/17 10:16 Dose: 81 mg Docusate Sodium (Colace) 100 mg PO BID [facility] Last Admin: 07/25/17 10:16 Dose: 100 mg Enoxaparin Sodium (Lovenox) 40 mg SC DAILY [facility] Last Admin: 07/25/17 10:17 Dose: Not Given Ferrous Sulfate (Feosol) 325 mg PO DAILY [facility] Last Admin: 07/25/17 10:15 Dose: 325 [facility]: 07/25/17 08:20 Dose: 4 mg [facility] Admin: 07/25/17 08:20 Dose: 1,000 mg Pantoprazole Sodium (Protonix Ec Tab) 40 mg PO DAILY [facility] Last Admin: 07/25/17 10:15 Dose: 40 mg Pioglitazone HCl (Actos) 30 mg PO DAILY [facility] Last Admin: 07/25/17 10:18 Dose: 30 mg Pneumococcal Polyvalent Vaccine (Pneumovax 23 Vaccine) 0.5 ml IM .ONCE ONE Stop: 07/26/17 10:01 Sitagli[facility]ate [facility]) [facility] Admin: 07/25/17 08:20 Dose: 50 mg Physical Exam - Constitutional Appears: Non-toxic, Chronically Ill - Head Exam Head Exam: NORMOCEPHALIC - Eye Exam Eye Exam: PERRL. absent: Scleral icterus - ENT Exam ENT Exam: Mucous Membranes Dry, Normal External Ear Exam - Neck Exam Neck exam: Negative for: Lymphadenopathy - Respiratory Exam Respiratory Exam: Decreased Breath Sounds, Clear to Auscultation Bilateral - Cardiovascular Exam Cardiovascular Exam: REGULAR RHYTHM, +S1, +S2 - GI/Abdominal Exam GI & Abdominal Exam: Diminished Bowel Sounds, Soft. absent: Tenderness - Rectal Exam Rectal Exam: Deferred - Exam Exam: NORMAL INSPECTION - Extremities Exam Extremities exam: Negative for: pedal edema - Back Exam Back exam: absent: CVA tenderness (L), CVA tenderness (R) - Neurological Exam Neurological exam: Alert, CN II-XII Intact, Oriented x3, Reflexes Normal - Psychiatric Exam Psychiatric exam: Normal Mood - Skin Skin Exam: Dry Results - Vital Signs Recent Vital Signs: Last Vital Signs Temp 98.3 F 07/25/17 07:59 Pulse 99 H 07/25/17 07:59 Resp 20 07/25/17 07:59 BP 110/68 07/25/17 07:59 Pulse Ox 98 07/25/17 13:02 - Labs Result Diagrams: 07/25/17 07:12 07/25/17 07:12 Labs: Laboratory Results - last 24 hr 07/24/17 07/24/17 07/24/17 01:11 17:08 17:08 WBC RBC Hgb Hct MCV MCH MCHC RDW Plt Count MPV Neut % (Auto) Lymph % (Auto) [place] % (Auto) Eos % (Auto) Baso % (Auto) Neut # Lymph # [place] # Eos # Baso # Sodium Potassium Chloride Carbon Dioxide Anion Gap BUN Creatinine Est GFR ( Amer) Est GFR (Non-Af Amer) POC Glucose (mg/dL) Random Glucose Calcium Phosphorus 2.1 L Magnesium Total Bilirubin AST ALT Alkaline Phosphatase Total Protein Albumin Globulin Albumin/Globulin Ratio Urine Color Urine Clarity Urine pH Ur Specific [place] Urine Protein Urine Glucose (UA) Urine Ketones Urine Blood Urine Nitrate Urine Bilirubin Urine Urobilinogen Ur Leukocyte Esterase Urine WBC (Auto) Urine RBC (Auto) Urine Bacteria Urine Chloride 84 Hepatitis A IgM Ab Negative Hep Bs Antigen Positive Hep Bs Ag Neutralizatn Hep B Core IgM Ab Negative Hepatitis C Antibody Negative 07/24/17 07/24/17 07/25/17 17:08 21:37 05:11 WBC RBC Hgb Hct MCV MCH MCHC RDW Plt Count MPV Neut % (Auto) Lymph % (Auto) [place] % (Auto) Eos % (Auto) Baso % (Auto) Neut # Lymph # [place] # Eos # Baso # Sodium Potassium Chloride Carbon Dioxide Anion Gap BUN Creatinine Est GFR ( Amer) Est GFR (Non-Af Amer) POC Glucose (mg/dL) 249 H Random Glucose Calcium Phosphorus Magnesium Total Bilirubin AST ALT Alkaline Phosphatase Total Protein Albumin Globulin Albumin/Globulin Ratio Urine Color Colorless Urine Clarity Clear Urine pH 9.0 Ur Specific [place] 1.008 Urine Protein Negative Urine Glucose (UA) 3+ H Urine Ketones Negative Urine Blood Negative Urine Nitrate Negative Urine Bilirubin Negative Urine Urobilinogen Normal Ur Leukocyte Esterase Neg Urine WBC (Auto) 1 Urine RBC (Auto) < 1 Urine Bacteria Rare Urine Chloride Hepatitis A IgM Ab Hep Bs Antigen Hep Bs Ag Neutralizatn Confirmed positive H Hep B Core IgM Ab Negative Hepatitis C Antibody 07/25/17 07/25/17 07/25/17 07:10 07:12 07:12 WBC 7.5 RBC 4.21 L Hgb 13.0 Hct 36.8 MCV 87.4 MCH 30.8 MCHC 35.3 RDW 13.0 Plt Count 249 MPV 9.0 Neut % (Auto) 49.6 L Lymph % (Auto) 37.4 [place] % (Auto) 9.1 Eos % (Auto) 3.1 Baso % (Auto) 0.8 Neut # 3.7 Lymph # 2.8 [place] # 0.7 Eos # 0.2 Baso # 0.1 Sodium 134 Potassium 3.1 L Chloride 104 Carbon Dioxide 24 Anion Gap 10 BUN 10 Creatinine 0.8 Est GFR ( Amer) > 60 Est GFR (Non-Af Amer) > 60 POC Glucose (mg/dL) 172 H Random Glucose 165 H Calcium 8.3 L Phosphorus Magnesium 1.7 Total Bilirubin 0.5 AST 16 L D ALT 29 Alkaline Phosphatase 55 Total Protein 5.7 L Albumin 3.2 L D Globulin 2.5 Albumin/Globulin Ratio 1.3 Urine Color Urine Clarity Urine pH Ur Specific [place] Urine Protein Urine Glucose (UA) Urine Ketones Urine Blood Urine Nitrate Urine Bilirubin Urine Urobilinogen Ur Leukocyte Esterase Urine WBC (Auto) Urine RBC (Auto) Urine Bacteria Urine Chloride Hepatitis A IgM Ab Hep Bs Antigen Hep Bs Ag Neutralizatn Hep B Core IgM Ab Hepatitis C Antibody 07/25/17 11:12 WBC RBC Hgb Hct MCV MCH MCHC RDW Plt Count MPV Neut % (Auto) Lymph % (Auto) [place] % (Auto) Eos % (Auto) Baso % (Auto) Neut # Lymph # [place] # Eos # Baso # Sodium Potassium Chloride Carbon Dioxide Anion Gap BUN Creatinine Est GFR ( Amer) Est GFR (Non-Af Amer) POC Glucose (mg/dL) 262 H Random Glucose Calcium Phosphorus Magnesium Total Bilirubin AST ALT Alkaline Phosphatase Total Protein Albumin Globulin Albumin/Globulin Ratio Urine Color Urine Clarity Urine pH Ur Specific [place] Urine Protein Urine Glucose (UA) Urine Ketones Urine Blood Urine Nitrate Urine Bilirubin Urine Urobilinogen Ur Leukocyte Esterase Urine WBC (Auto) Urine RBC (Auto) Urine Bacteria Urine Chloride Hepatitis A IgM Ab Hep Bs Antigen Hep Bs Ag Neutralizatn Hep B Core IgM Ab Hepatitis C Antibody Assessment & Plan (1) Dysuria Status: Acute (2) Metabolic acidosis Status: Acute - Assessment and Plan (Free Text) Assessment: SEVERE METABOLIC ACIDOSIS R/O SEPSIS SOURCE UNCLEAR POSSIBLE FANCONI'S SYNDROME AWAIT CULTURES CONT IV RX Plan: SWITCH TO VEMLIDY ( TENOFOVIR ALAFENAMIDE ) UPON DISCHARGE
--- NOTE | 2017-07-25 17:56 | CP.PCM.PN ---
Subjective - Date & Time of Evaluation Date of Evaluation: 07/25/17 Time of Evaluation: 17:56 - Subjective Subjective: pt is seen and examined, follow up consult is dictated #[id number] Objective - Vital Signs/Intake and Output Vital Signs (last 24 hours): Temp Pulse Resp BP Pulse Ox 97.5 F L 69 20 108/66 100 07/25/17 15:15 07/25/17 15:15 07/25/17 15:15 07/25/17 15:15 07/25/17 15:15 Intake and Output: 07/25/17 07/25/17 06:59 18:59 Intake Total 1780 1280 Output Total 1500 Balance 1780 -220 - Medications Medications: Current Medications Acetazolamide (Diamox 250 Mg Tab) 500 mg PO BID [facility] Last Admin: 07/25/17 17:12 Dose: 500 mg Aspirin (Aspirin Chewable) 81 mg PO DAILY [facility] Last Admin: 07/25/17 10:16 Dose: 81 mg Docusate Sodium (Colace) 100 mg PO BID [facility] Last Admin: 07/25/17 17:12 Dose: 100 mg Enoxaparin Sodium (Lovenox) 40 mg SC DAILY [facility] Last Admin: 07/25/17 10:17 Dose: Not Given Ferrous Sulfate (Feosol) 325 mg PO DAILY [facility] Last Admin: 07/25/17 10:15 Dose: 325 mg [facility] ([facility]l) [facility] Last Admin: 07/25/17 17:12 Dose: 4 mg Ceftriaxone Sodium 1 gm/ (Sodium Chloride) 100 mls @ 100 mls/hr IVPB Q24H [facility] Last Admin: 07/25/17 16:57 Dose: 100 mls/hr Metformin HCl (Glucophage) [facility] Last Admin: 07/25/17 17:12 Dose: 1,000 mg Pantoprazole Sodium (Protonix Ec Tab) 40 mg PO DAILY [facility] Last Admin: 07/25/17 10:15 Dose: 40 mg Pioglitazone HCl (Actos) 30 mg PO DAILY [facility] Last Admin: 07/25/17 10:18 Dose: 30 mg Pneumococcal Polyvalent Vaccine (Pneumovax 23 Vaccine) 0.5 ml IM .ONCE ONE Stop: 07/26/17 10:01 Sitagliptin Phosphate (Januvia) [facility] Last Admin: 07/25/17 17:13 Dose: 50 mg - Labs Labs: 07/25/17 07:12 07/25/17 07:12 PT 11.6 SECONDS (9.7-12.2) 07/23/17 17:32 INR 1.0 07/23/17 17:32 APTT 34 SECONDS (21-34) 07/23/17 17:32
--- NOTE | 2017-07-25 22:40 | CP.PCM.PN ---
Subjective - Date & Time of Evaluation Date of Evaluation: 07/25/17 Time of Evaluation: 16:50 - Subjective Subjective: pt seen and examined, improving, has Fanconi syndrome HCO3 and PH both low , pt is on tenofovir sice long time and acetolamide for glucoma recently Objective - Vital Signs/Intake and Output Vital Signs (last 24 hours): Temp Pulse Resp BP Pulse Ox 97.5 F L 69 20 108/66 100 07/25/17 15:15 07/25/17 15:15 07/25/17 15:15 07/25/17 15:15 07/25/17 15:15 Intake and Output: 07/25/17 07/26/17 18:59 06:59 Intake Total 1280 Output Total 1500 Balance -220 - Medications Medications: Current Medications Acetazolamide (Diamox 250 Mg Tab) 500 mg PO BID [facility] Last Admin: 07/25/17 17:12 Dose: 500 mg Aspirin (Aspirin Chewable) 81 mg PO DAILY [facility] Last Admin: 07/25/17 10:16 Dose: 81 mg Docusate Sodium (Colace) 100 mg PO BID [facility] Last Admin: 07/25/17 17:12 Dose: 100 mg Enoxaparin Sodium (Lovenox) 40 mg SC DAILY [facility] Last Admin: 07/25/17 10:17 Dose: Not Given Ferrous Sulfate (Feosol) 325 mg PO DAILY [facility] Last Admin: 07/25/17 10:15 Dose: 325 mg Glimepiride (Amaryl) 4 mg PO BIDCC [facility] Last Admin: 07/25/17 17:12 Dose: 4 mg Ceftriaxone Sodium 1 gm/ (Sodium Chloride) 100 mls @ 100 mls/hr IVPB Q24H [facility] Last Admin: 07/25/17 16:57 Dose: 100 mls/hr Metformin HCl (Glucophage) 1,000 mg PO BIDCC [facility] Last Admin: 07/25/17 17:12 Dose: 1,000 mg Pantoprazole Sodium (Protonix Ec Tab) 40 mg PO DAILY [facility] Last Admin: 07/25/17 10:15 Dose: 40 mg Pioglitazone HCl (Actos) 30 mg PO DAILY [facility] Last Admin: 07/25/17 10:18 Dose: 30 mg Pneumococcal Polyvalent Vaccine (Pneumovax 23 Vaccine) 0.5 ml IM .ONCE ONE Stop: 07/26/17 10:01 [facility]agli[facility] ([facility]) [facility] Admin: 07/25/17 17:13 Dose: 50 mg - Labs Labs: 07/25/17 07:12 07/25/17 07:12 PT 11.6 SECONDS (9.7-12.2) 07/23/17 17:32 INR 1.0 07/23/17 17:32 APTT 34 SECONDS (21-34) 07/23/17 17:32 - Constitutional Appears: No Acute Distress - Head Exam Head Exam: ATRAUMATIC, NORMAL INSPECTION, NORMOCEPHALIC - Eye Exam Eye Exam: EOMI, Normal appearance, PERRL Pupil Exam: NORMAL ACCOMODATION, PERRL - Respiratory Exam Respiratory Exam: Clear to Ausculation Bilateral, NORMAL BREATHING PATTERN - Cardiovascular Exam Cardiovascular Exam: REGULAR RHYTHM, +S1, +S2. absent: Murmur - GI/Abdominal Exam GI & Abdominal Exam: Soft, Normal Bowel Sounds. absent: Tenderness Assessment and Plan (1) Drug side effects Status: Acute (2) Dysuria Status: Acute (3) Metabolic acidosis Status: Acute
--- NOTE | 2017-07-26 03:47 | PN ---
FOLLOWUP RENAL CONSULTATION DATE: 07/25/2017 LOCATION: The patient is located in room 353, bed A. REQUESTED BY: Danny Martin MD REASON FOR FOLLOWUP: Metabolic acidosis, hypophosphatemia, phosphaturia, glycosuria, rule out Fanconi syndrome secondary to tenofovir. SUBJECTIVE: Mr. Diehl is a 71-year-old elderly male with a history of chronic hepatitis B infection, on tenofovir and also diabetes and hyperlipidemia, was admitted from the PMD office with hypothermia, chills, dysuria, and genital pain. The patient was found to have severe metabolic acidosis and hypophosphatemia and glycosuria also, and subsequently, the patient was admitted for further evaluation. The patient was found to have taking tenofovir for a longtime for hepatitis B infection. The patient is getting his medications from [facility] as per the patient. The patient is feeling better, not in any acute distress. Denies any headache or dizziness. Denies any chest pain or palpitations. Denies any fever or cough. No abdominal pain. No nausea, vomiting, or diarrhea today. PHYSICAL EXAMINATION: GENERAL: Mr. Deihl is a 71-year-old elderly male, moderately built, moderately nourished, not in any distress. VITAL SIGNS: As follows; blood pressure 110/68, pulse 99, respirations 20, temperature 98.3, saturations 98%, height 5 feet 6 inches, and weight is 132 pounds, HEENT: Pupils are normal and reactive to light and accommodation. Conjunctivae are pink. Sclerae are anicteric. Tongue is moist. Trachea is midline. LUNGS: Symmetric on both sides. Bilateral breath sounds present. Clear on auscultation. CARDIOVASCULAR SYSTEM: [place] at the fifth intercostal space, midclavicular line. S1 and S2, audible. No murmur or gallop. ABDOMEN: Normal in appearance. Soft and tympanic. No guarding. No rigidity. No hepatosplenomegaly. CENTRAL NERVOUS SYSTEM: The patient is alert, awake, and oriented x3. Nonfocal neuro examination. Cranial nerves II through XII are grossly intact. Sensory and motor system is within normal limits. EXTREMITIES: No cyanosis. No clubbing. No edema. CURRENT MEDICATIONS: Include as follows; Actos 30 mg p.o. daily, Amaryl 4 mg p.o. b.i.d., aspirin 81 mg daily, Rocephin 1 gm daily, Colace 100 mg p.o. b.i.d., Diamox 250 mg tablet 500 p.o. b.i.d., Feosol 325 mg daily, metformin 1000 mg p.o. b.i.d., Januvia 50 mg p.o. b.i.d., Lovenox 40 mg subcutaneous daily, and Pneumovax 0.5 mL IM x1, and Protonix 40 mg p.o. daily. LABORATORY DATA: Include as follows, as of 07/25/2017, WBC 7.5, hemoglobin 13, hematocrit is 36.8, and platelets 249. Sodium 134, potassium 3.1, chloride 104, CO2 of 24, BUN 10, creatinine 0.8, glucose 165, calcium 8.3, magnesium 1.7, total bilirubin 0.5, AST 16, ALT 29, alkaline phosphatase 55, total protein 5.7, albumin is 3.2. Urinalysis; colorless, clear, and pH 9.029, specific gravity 1.008, protein negative, glucose 3+, ketones negative, blood is negative, nitrite negative, bilirubin negative, urobilinogen normal, leukocyte esterase negative, wbc 1, rbc 1, bacteria rare. HIV 1 and 2 antibody screening were negative. Procalcitonin is 0.05. Other laboratory data as of 07/24/2017 at 1708 hours, phosphorus is 2.1, urine osmolality is 310, urine sodium is 71, urine potassium is 15.2, urine chloride is 84 with anion gap about +2, urine creatinine 16.6, urine random phosphorus level 12.3 and fractional excretion of the phosphorus is 16.3. Hepatitis C, A antibody IgM is negative and hepatitis B surface antigen is positive. Hepatitis B surface antigen neutralization confirmatory positive and Hepatitis B core antibody IgM is negative and hepatitis C antibody is negative. HIV 1 and 2 antibody screening is negative. Salicylic acid level less than 1 and alcohol level is less than 20 on 07/23/2017. An ultrasound of the kidneys as of 07/24/2017; impression, right kidney is 10.1 x 5.3 x 5, and left kidney is 10.6 x 5.2 x 5, and mid upper pole obstructing calculus 1.2 x 0.5 x 0.6 cm. No appreciated solid mass or hydronephrosis visualized. Left kidney 10.6 x 5.2 x 5 cm and mid to lower pole stone, possibly a cluster of stone conglomerate, measures 9.5 x 5 x 5 mm. No appreciated solid mass or hydronephrosis. ASSESSMENT: In summary, Mr. Diehl is a 71-year-old elderly male with history of diabetes, chronic hepatitis B infection, nephrolithiasis, was admitted with dysuria and genital pain, found to have low bicarbonate, low potassium, glycosuria, hypophosphatemia, and phosphaturia. 1. Non-anion gap metabolic acidosis, most likely secondary to proximal renal tubular acidosis secondary to medication tenofovir, cannot rule out Fanconi syndrome in the setting of acidosis, hypophosphatemia, phosphaturia, and glycosuria cannot be ruled out. 2. Diabetes type 2. 3. Glaucoma. 4. Nephrolithiasis. PLAN: I agreed to discontinue sodium bicarbonate drip this morning and continue antibiotics as per the primary team and ID consult for further management of hepatitis B infection and also check hepatitis B viral DNA PCR, which is pending, and continue Diamox and continue his current medication. Agreed to supplement potassium 40 mEq p.o. x2 doses. Check BMP in a.m. The patient is stable from the renal standpoint, and the patient may need to continue sodium bicarbonate p.o. t.i.d. 650 mg as an outpatient. The patient can be followed as an outpatient. Thank you for allowing me to participate in your patient's care. Manav Soriano MD
[2017-07-26 07:04] LABS: BLOOD UREA NITROGEN 15 mg/dL (9-20); CALCIUM 8.7 mg/dl (8.6-10.4); GFR AFRICAN-AMERICAN > 60; GFR NON-AFRICAN AMERICAN > 60
[2017-07-26] MEDS: Pantoprazole 40 mg EC Tab PO SCH (09:24)
[2017-07-26] MEDS: Enoxaparin 40 mg Syringe SC SCH (09:26)
--- NOTE | 2017-07-26 09:28 | CON ---
DATE: RENAL CONSULTATION LOCATION: The patient is located in room 353, bed A. REQUESTING PHYSICIAN: Dr. Danny Martin. REASON FOR RENAL CONSULTATION: Hypokalemia and metabolic acidosis for further evaluation. HISTORY OF PRESENT ILLNESS: Mr. Diehl is a 71-year-old elderly [place]ian male with past medical history significant for type 2 diabetes for about 30 years and history of glaucoma and chronic hepatitis B infection, on oral hypoglycemic agents and also taking tenofovir by himself, getting medication from back home 300 mg daily. Patient was seen by PMD in the office for possible dysuria and pain for x1 day and patient was found to have hypothermia in the office about 94 degrees and shaking. Patient was advised to go to the emergency room for further evaluation. Patient was admitted for further evaluation. Patient was found to have low bicarbonate and low potassium. Patient denies any nausea, vomiting, diarrhea. Denies any abdominal pain. Denies any swelling of the legs. Denies any hematuria. PAST MEDICAL HISTORY: Significant for type 2 diabetes for about 30 years, chronic hepatitis B infection, and glaucoma. PAST SURGICAL HISTORY: Significant for cataract surgery bilateral and also, appendectomy long time ago. ALLERGIES: NO KNOWN DRUG ALLERGIES. HOME MEDICATIONS: Include Restoril 7.5 mg at bedtime, Janumet mg 1 tablet b.i.d., pioglitazone 30 mg p.o. daily, Protonix 40 mg daily, Amaryl 4 mg p.o. b.i.d., Feosol 1 tablet daily, Lipitor 10 mg at bedtime and also, tenofovir 300 mg daily. SOCIAL HISTORY: Denies any smoking. Occasional alcohol use. No drug abuse. PERSONAL HISTORY: He is and has 2 children. Lives with his . Both parents . He has 1 sister alive, one sister . REVIEW OF SYSTEMS: Significant for dysuria and pain in the genital region times one day and hypothermia. All other review of systems are reviewed and are negative. PHYSICAL EXAMINATION GENERAL: Mr. Diehl is a 71-year-old elderly male, moderately built, moderately nourished, not in any acute distress. VITAL SIGNS: As follows: His blood pressure 117/65, pulse 90, respirations 20, temperature 97.7, saturation 92%, height 5 feet 6 inches and weight is 132 pounds. HEENT: Pupils are normal and reactive to light and accommodation. Conjunctivae are pink. Sclerae are anicteric. Tongue is moist. Trachea is midline. LUNGS: Symmetric on both sides. Bilateral breath sounds present. Clear on auscultation. Asymmetry on both sides. CARDIOVASCULAR SYSTEM: [place] at the fifth intercostal space, midclavicular line. S1 and S2 audible. No murmur. No gallop. ABDOMEN: Normal in appearance. Soft, tympanic. No guarding. No rigidity. No hepatosplenomegaly. No abdominal bruits. No flank tenderness. CENTRAL NERVOUS SYSTEM: The patient is alert, awake, and oriented x3. Nonfocal neuro examination. Cranial nerves II through XII are grossly intact. Sensory and motor system is within normal limits. EXTREMITIES: No cyanosis. No clubbing. No edema. LABORATORY DATA: Include as follows: As of 07/23/2017, WBC 9.1, hemoglobin 16, hematocrit is 47.3, platelets 328,000. PT 11.6, PTT 34. ABG: pH 7.29, pCO2 26, pO2 124, bicarbonate is 15.3, and saturation 97.3. Other lab data: Sodium 135, potassium 3.9, chloride 105, pCO2 is 18, BUN 18, creatinine 0.8, glucose 218, lactic acid 0.9, calcium 9.1, phosphorus 2.8, magnesium 1.8, total bilirubin 0.6, AST 26, ALT 31, alkaline phosphatase is 75, total protein 8.4, albumin is 4.6. Urine color is straw and clear, pH 6, specific gravity 1.020, protein negative, glucose 3+, ketones negative, blood negative, nitrites negative, urobilinogen negative, leukocyte esterase negative, urine salicylate level is less than 1 and alcohol level is less than 20. Other laboratory data as of 07/24/2017, WBC 7.4, hemoglobin 13.5, hematocrit is 38.9, platelets 251,000. Sodium 133, potassium is 3.2, chloride is 106, CO2 of 20, BUN is 11, creatinine , glucose 182, calcium is 8.0 and phosphorus 2.7. His other laboratory data: Chest x-ray as of 07/23/2017, impression is no active disease. ASSESSMENT: In summary, Mr. Diehl is a 71-year-old elderly male with a history of type 2 diabetes, hyperlipidemia, nephrolithiasis, last passage of the stone was about 6 to 7 years ago status post lithotripsy and status post ureteral stent placement in the past, who was admitted with hypothermia in the PMD office and chills and also dysuria and pain in the penis for 1 day and found to have low bicarbonate level on admission and also glycosuria. 1. Metabolic acidosis, etiology is not clear, cannot rule out Fanconi syndrome secondary to tenofovir and proximal tubular dysfunction. 2. Diabetes. Continue oral hypoglycemic agents. 3. Hyperlipidemia. Continue his current medication, Lipitor. We will repeat BMP in the morning. Repeat urinalysis in the morning also and need better control of the sugars and check hemoglobin A1c also and lipid profile. PLAN: Continue IV fluids, D5W with 3 amps of bicarb at 70 to 80 mL per hour and we will check hepatitis serology, hepatitis B surface antigen, surface antibody, hepatitis C antibody and also, we will check ultrasound of the kidneys for nephrolithiasis and we will hold tenofovir and ID consult for hepatitis B treatment. I will also check urine creatinine and urine phosphorus to calculate fractional excretion of the phosphorus. We will follow with you. Thank you for allowing me to participate in your patient's care. Manav Soriano MD
[2017-07-26] MEDS ORDERED: Pneumococcal 23-Valent Vaccine IM ONE (10:00)
--- NOTE | 2017-07-26 10:03 | CP.PCM.PN ---
Subjective - Date & Time of Evaluation Date of Evaluation: 07/26/17 Time of Evaluation: 10:02 - Subjective Subjective: pt is seen and examined, follow up consult is dictated #[id number] add [id number] 650 mg po tid c/w diamax for glaucoma Objective - Vital Signs/Intake and Output Vital Signs (last 24 hours): Temp Pulse Resp BP Pulse Ox 97.6 F 82 20 132/78 100 07/26/17 08:23 07/26/17 08:23 07/26/17 08:23 07/26/17 08:23 07/26/17 08:23 Intake and Output: 07/26/17 07/26/17 06:59 18:59 Intake Total 180 Balance 180 - Medications Medications: Current Medications Acetazolamide (Diamox 250 Mg Tab) 500 mg PO BID [facility] Last Admin: 07/26/17 09:25 Dose: 500 mg Aspirin (Aspirin Chewable) 81 mg PO DAILY [facility] Last Admin: 07/26/17 09:24 Dose: 81 mg Docusate Sodium (Colace) 100 mg PO BID [facility] Last Admin: 07/26/17 09:24 Dose: 100 mg Enoxaparin Sodium (Lovenox) 40 mg SC DAILY [facility] Last Admin: 07/26/17 09:26 Dose: Not Given Ferrous Sulfate (Feosol) 325 mg PO DAILY [facility] Last Admin: 07/26/17 09:24 Dose: 325 [facility] Admin: 07/26/17 08:01 Dose: 4 mg Ceftriaxone Sodium 1 gm/ (Sodium Chloride) 100 mls @ 100 mls/hr IVPB Q24H [facility] Last Admin: 07/25/17 16:57 Dose: 100 mls/hr Metformin [facility] ([facility]uc[facility]) [facility] Last Admin: 07/26/17 08:01 Dose: 1,000 mg Pantoprazole Sodium (Protonix Ec Tab) 40 mg PO DAILY [facility] Last Admin: 07/26/17 09:24 Dose: 40 mg Pioglitazone HCl (Actos) 30 mg PO DAILY [facility] Last Admin: 07/26/17 09:24 Dose: 30 mg Sitagliptin Phosphate ([facility]) [facility] Last Admin: 07/26/17 08:01 Dose: 50 mg Sodium Bicarbonate (Sodium Bicarbonate Tab) 650 mg PO Q8 [facility] - Labs Labs: 07/25/17 07:12 07/26/17 06:39 PT 11.6 SECONDS (9.7-12.2) 07/23/17 17:32 INR 1.0 07/23/17 17:32 APTT 34 SECONDS (21-34) 07/23/17 17:32
[2017-07-26] MEDS ORDERED: Influenza Vaccine 60 mcg/0.5 mL SYR (4YR UP) IM ONE (11:00)
--- NOTE | 2017-07-26 19:22 | CP.PCM.PN ---
Subjective - Date & Time of Evaluation Date of Evaluation: 07/26/17 Time of Evaluation: 09:00 - Subjective Subjective: discussed on rounds may try vemlidy instead of tenofovir but needs to be mmonitored closely lactic acidosis can be life threatening Objective - Vital Signs/Intake and Output Vital Signs (last 24 hours): Temp Pulse Resp BP Pulse Ox 97.7 F 68 20 100/61 100 07/26/17 15:15 07/26/17 15:15 07/26/17 15:15 07/26/17 15:15 07/26/17 15:15 Intake and Output: 07/26/17 07/27/17 18:59 06:59 Intake Total 780 Balance 780 - Medications Medications: Current Medications Acetazolamide (Diamox 250 Mg Tab) 500 mg PO BID [facility] Last Admin: 07/26/17 17:09 Dose: 500 mg Aspirin (Aspirin Chewable) 81 mg PO DAILY [facility] Last Admin: 07/26/17 09:24 Dose: 81 mg Docusate Sodium (Colace) 100 mg PO BID [facility] Last Admin: 07/26/17 17:09 Dose: 100 mg Enoxaparin Sodium (Lovenox) 40 mg SC DAILY [facility] Last Admin: 07/26/17 09:26 Dose: Not Given Ferrous Sulfate (Feosol) 325 mg PO DAILY [facility] Last Admin: 07/26/17 09:24 Dose: 325 mg [facility] Last Admin: 07/26/17 17:09 Dose: 4 mg Ceftriaxone Sodium 1 gm/ (Sodium Chloride) 100 mls @ 100 mls/hr IVPB Q24H [facility] Last Admin: 07/26/17 17:09 Dose: 100 mls/hr Metformin HCl (Glucophage) [facility] Last Admin: 07/26/17 17:09 Dose: 1,000 mg Pantoprazole Sodium (Protonix Ec Tab) 40 mg PO DAILY [facility] Last Admin: 07/26/17 09:24 Dose: 40 mg Pioglitazone HCl (Actos) 30 mg PO DAILY [facility] Last Admin: 07/26/17 09:24 Dose: 30 mg Sitagliptin Phosphate ([facility]uvia) [facility] Last Admin: 07/26/17 17:09 Dose: 50 mg Sodium Bicarbonate (Sodium Bicarbonate Tab) 650 mg PO Q8 [facility] Last Admin: 07/26/17 13:35 Dose: 650 mg - Labs Labs: 07/25/17 07:12 07/26/17 06:39 PT 11.6 SECONDS (9.7-12.2) 07/23/17 17:32 INR 1.0 07/23/17 17:32 APTT 34 SECONDS (21-34) 07/23/17 17:32 - Constitutional Appears: Non-toxic, Chronically Ill - Head Exam Head Exam: NORMOCEPHALIC - Eye Exam Eye Exam: PERRL - ENT Exam ENT Exam: Mucous Membranes Dry - Neck Exam Neck Exam: absent: Lymphadenopathy - Respiratory Exam Respiratory Exam: Decreased Breath Sounds - Cardiovascular Exam Cardiovascular Exam: REGULAR RHYTHM - GI/Abdominal Exam GI & Abdominal Exam: Distended - Rectal Exam Rectal Exam: Deferred - Exam Exam: NORMAL INSPECTION - Extremities Exam Extremities Exam: absent: Pedal Edema - Back Exam Back Exam: absent: CVA tenderness (L), CVA tenderness (R) Assessment and Plan (1) Dysuria Status: Acute (2) Metabolic acidosis Status: Acute - Assessment and Plan (Free Text) Assessment: may try vemlidy instead of tenofovir but needs to be monitored closely since lactic acidosis can occur with most antivirals lactic acidosis can be life threatening
--- NOTE | 2017-07-26 21:14 | CP.PCM.PN ---
Subjective - Date & Time of Evaluation Date of Evaluation: 07/26/17 Time of Evaluation: 17:45 - Subjective Subjective: Pt seen and evaluated at bedside Objective - Vital Signs/Intake and Output Vital Signs (last 24 hours): Temp Pulse Resp BP Pulse Ox 97.7 F 68 20 100/61 100 07/26/17 15:15 07/26/17 15:15 07/26/17 15:15 07/26/17 15:15 07/26/17 15:15 Intake and Output: 07/26/17 07/27/17 18:59 06:59 Intake Total 780 Balance 780 - Medications Medications: Current Medications Acetazolamide (Diamox 250 Mg Tab) 500 mg PO BID [facility] Last Admin: 07/26/17 17:09 Dose: 500 mg Aspirin (Aspirin Chewable) 81 mg PO DAILY [facility] Last Admin: 07/26/17 09:24 Dose: 81 mg Docusate Sodium (Colace) 100 mg PO BID [facility] Last Admin: 07/26/17 17:09 Dose: 100 mg Enoxaparin Sodium (Lovenox) 40 mg SC DAILY [facility] Last Admin: 07/26/17 09:26 Dose: Not Given Ferrous Sulfate (Feosol) 325 mg PO DAILY [facility] Last Admin: 07/26/17 09:24 Dose: 325 mg [facility] Last Admin: 07/26/17 17:09 Dose: 4 mg Ceftriaxone Sodium 1 gm/ (Sodium Chloride) 100 mls @ 100 mls/hr IVPB Q24H [facility] Last Admin: 07/26/17 17:09 Dose: 100 mls/hr Metformin HCl (Glucophage) [facility] Last Admin: 07/26/17 17:09 Dose: 1,000 mg Pantoprazole Sodium (Protonix Ec Tab) 40 mg PO DAILY [facility] Last Admin: 07/26/17 09:24 Dose: 40 mg Pioglitazone HCl (Actos) 30 mg PO DAILY [facility] Last Admin: 07/26/17 09:24 Dose: 30 mg Sitagliptin Phosphate (Januvia) [facility] Last Admin: 07/26/17 17:09 Dose: 50 mg Sodium Bicarbonate (Sodium Bicarbonate Tab) 650 mg PO Q8 [facility] Last Admin: 07/26/17 13:35 Dose: 650 mg - Labs Labs: 07/25/17 07:12 07/26/17 06:39 PT 11.6 SECONDS (9.7-12.2) 07/23/17 17:32 INR 1.0 07/23/17 17:32 APTT 34 SECONDS (21-34) 07/23/17 17:32 Assessment and Plan (1) Drug side effects Status: Acute (2) Dysuria Status: Acute (3) Metabolic acidosis Status: Acute
[2017-07-27 08:41] VITALS: BP 136/80; PULSE 75; TEMP 97.4; O2SAT 96
--- NOTE | 2017-07-27 08:57 | CP.PCM.PN ---
Subjective - Date & Time of Evaluation Date of Evaluation: 07/27/17 Time of Evaluation: 08:57 - Subjective Subjective: pt is carlos alberto nd examined, follow up consult is dictated #[id number] Objective - Vital Signs/Intake and Output Vital Signs (last 24 hours): Temp Pulse Resp BP Pulse Ox 97.4 F L 75 20 136/80 96 07/27/17 08:40 07/27/17 08:40 07/27/17 08:40 07/27/17 08:40 07/27/17 08:40 Intake and Output: 07/27/17 07/27/17 06:59 18:59 Intake Total 400 Balance 400 - Medications Medications: Current Medications Acetazolamide (Diamox 250 Mg Tab) 500 mg PO BID [facility] Last Admin: 07/26/17 17:09 Dose: 500 mg Aspirin (Aspirin Chewable) 81 mg PO DAILY [facility] Last Admin: 07/26/17 09:24 Dose: 81 mg Docusate Sodium (Colace) 100 mg PO BID [facility] Last Admin: 07/26/17 17:09 Dose: 100 mg Enoxaparin Sodium (Lovenox) 40 mg SC DAILY [facility] Last Admin: 07/26/17 09:26 Dose: Not Given Ferrous Sulfate (Feosol) 325 mg PO DAILY [facility] Last Admin: 07/26/17 09:24 Dose: 325 mg [facility] ([facility]l) [address] [facility] Last Admin: 07/27/17 07:48 Dose: 4 mg Ceftriaxone Sodium 1 gm/ (Sodium Chloride) 100 mls @ 100 mls/hr IVPB Q24H [facility] Last Admin: 07/26/17 17:09 Dose: 100 mls/hr Metformin HCl (Glucophage) [facility] [facility] Last Admin: 07/27/17 07:48 Dose: 1,000 mg Pantoprazole Sodium (Protonix Ec Tab) 40 mg PO DAILY [facility] Last Admin: 07/26/17 09:24 Dose: 40 mg Pioglitazone HCl (Actos) 30 mg PO DAILY [facility] Last Admin: 07/26/17 09:24 Dose: 30 mg Sitagliptin Phosphate (Januvia) [address] [facility] Last Admin: 07/27/17 07:48 Dose: 50 mg Sodium Bicarbonate (Sodium Bicarbonate Tab) 650 mg PO Q8 [facility] Last Admin: 07/27/17 05:50 Dose: 650 mg - Labs Labs: 07/25/17 07:12 07/26/17 06:39 PT 11.6 SECONDS (9.7-12.2) 07/23/17 17:32 INR 1.0 07/23/17 17:32 APTT 34 SECONDS (21-34) 07/23/17 17:32
[2017-07-27] MEDS: Pantoprazole 40 mg EC Tab PO SCH (09:22)
[2017-07-27] MEDS: Enoxaparin 40 mg Syringe SC SCH (09:23)
--- NOTE | 2017-07-27 09:44 | PN ---
DATE: FOLLOWUP RENAL CONSULTATION LOCATION: Patient is located in room 353, bed A. REQUESTED BY: Danny Martin MD REASON FOR RENAL CONSULTATION: Hypophosphatemia, glucosuria, phosphaturia, metabolic acidosis, for further evaluation. HISTORY OF PRESENT ILLNESS: The patient is a 71-year-old elderly [place] male with a history of type 2 diabetes, glaucoma, and chronic hepatitis B infection, on tenofovir at home 300 mg daily, and also glaucoma, on Diamox started recently about 3 days prior to the admission, was admitted with chills and hypothermia, and also dysuria. The patient is being treated for possible sepsis and also found to have a low bicarb and also hypophosphatemia and phosphaturia and glucosuria. The patient is suspected to have Fanconi syndrome secondary to tenofovir which is on hold at this time. The patient denies any complaints. No chest pain, no palpitations, no fever, no cough, no abdominal pain. No nausea, vomiting or diarrhea. The patient was restarted on Diamox yesterday. PHYSICAL EXAMINATION: VITAL SIGNS: As follows, this morning, blood pressure 132/78, pulse 82, respirations 20, temperature 97.6, saturation 100%. Height 5 feet 6 inches and weight is 132 pounds. GENERAL: The patient is a 71-year-old elderly male, moderately built, moderately nourished, not in distress. HEENT: Pupils are normal and reactive to light and accommodation. Conjunctivae pink. Sclerae are anicteric. Tongue is moist. Trachea is midline. LUNGS: Symmetric on both sides. Bilateral breath sounds are present. Clear on auscultation. CARDIOVASCULAR: [place] at the fifth intercostal space, half-inch medial to midclavicular line. S1 and S2 audible. No murmur, no gallop. ABDOMEN: Normal in appearance, soft, tympanic. No guarding. No rigidity. No hepatosplenomegaly. No abdominal bruits. CENTRAL NERVOUS SYSTEM: Patient is alert, awake, oriented x3. Nonfocal on examination. Cranial nerves II through XII grossly intact. Sensory and motor systems within normal limits. Deep tendon reflexes are normal. EXTREMITIES: No cyanosis. No clubbing. No edema. MEDICATIONS: His current medications include as follows, Actos 30 mg p.o. daily, Amaryl 4 mg p.o. b.i.d., aspirin 81 mg daily, Rocephin 1 g daily, Colace 100 mg p.o. b.i.d., Diamox 250 mg 2 tablets p.o. b.i.d., Feosol 325 mg p.o. daily, metformin 1000 mg p.o. b.i.d., Januvia 50 mg p.o. b.i.d., Lovenox 40 mg subcu daily, Protonix 40 mg p.o. daily, and sodium bicarbonate started this morning at 650 mg p.o. q. 8 hours. LABORATORY DATA: Includes as follows, as of 07/26/2017, sodium 135, potassium 3.9, chloride 109, CO2 of 17, with an anion gap about 9, BUN 15, creatinine 0.8, glucose 149 and calcium 8.7. Procalcitonin as of 07/25/2017, less than 0.05. Other laboratory data, urine culture negative as of 07/23/2017 and blood culture x2 negative as of 07/23/2017. ASSESSMENT AND PLAN: In summary, the patient is a 71-year-old elderly male with a history of diabetes type 2, glaucoma, nephrolithiasis, chronic hepatitis B infection, on tenofovir and Diamox, was admitted with low bicarb and low phosphorus and also glucosuria. 1. 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 2. Type 2 diabetes. 3. Nephrolithiasis. 4. Chronic hepatitis B infection. Continue to follow up with Infectious Disease specialist Dr. Adamson, and adjust tenofovir as per the ID recommendations, and follow up with hepatitis D viral DNA by PCR. Sodium bicarb 650 mg p.o. q. 8 hours was added this morning. Repeat BMP in the a.m. Thank you for allowing me to participate in your patient's care. Manav Soriano MD
[2017-07-27 12:30] LABS: BLOOD UREA NITROGEN 19 mg/dL (9-20); CALCIUM 9.2 mg/dl (8.6-10.4); GFR AFRICAN-AMERICAN > 60; GFR NON-AFRICAN AMERICAN > 60
--- NOTE | 2017-07-27 15:28 | CP.PCM.PN ---
Subjective - Date & Time of Evaluation Date of Evaluation: 07/27/17 Time of Evaluation: 11:00 - Subjective Subjective: Alert and orientedx3, no distress. Objective - Vital Signs/Intake and Output Vital Signs (last 24 hours): Temp Pulse Resp BP Pulse Ox 97.4 F L 75 20 136/80 96 07/27/17 08:40 07/27/17 08:40 07/27/17 08:40 07/27/17 08:40 07/27/17 08:40 Intake and Output: 07/27/17 07/27/17 06:59 18:59 Intake Total 400 680 Balance 400 680 - Labs Labs: 07/25/17 07:12 07/27/17 11:46 PT 11.6 SECONDS (9.7-12.2) 07/23/17 17:32 INR 1.0 07/23/17 17:32 APTT 34 SECONDS (21-34) 07/23/17 17:32 Assessment and Plan - Assessment and Plan (Free Text) Assessment: Patient is seen and examined. Alert, oriented, ambulatory. Denies sob or chest pains. CO2 17 today, DR Nguyen made aware. D/W DR Martin, plan to discharge home on sodium bicarb orally. Advised to follow up with PMD in 1 week. Also advised to follow up with DR Adamson in 1 week.
--- NOTE | 2017-07-27 23:32 | CP.PCM.DIS ---
Provider - Provider Date of Admission: 07/25/17 16:14 Attending physician: Danny Martin MD Time Spent in preparation of Discharge (in minutes): 45 Diagnosis - Discharge Diagnosis (1) Drug side effects Status: Acute (2) Dysuria Status: Acute (3) Metabolic acidosis Status: Acute Hospital Course - Lab Results Lab Results: Micro Results 07/23/17 21:00 Blood Blood Culture - Preliminary NO GROWTH AFTER 4 DAYS 07/23/17 21:00 Blood Blood Culture - Preliminary NO GROWTH AFTER 4 DAYS 07/23/17 18:00 Urine Urine Culture - Final No Growth (<1,000 CFU/ML) Most Recent Lab Values WBC 7.5 K/uL (4.8-10.8) 07/25/17 07:12 RBC 4.21 Mil/uL (4.40-5.90) L 07/25/17 07:12 Hgb 13.0 g/dL (12.0-18.0) 07/25/17 07:12 Hct 36.8 % (35.0-51.0) 07/25/17 07:12 MCV 87.4 fL (80.0-94.0) 07/25/17 07:12 MCH 30.8 pg (27.0-31.0) 07/25/17 07:12 MCHC 35.3 g/dL (33.0-37.0) 07/25/17 07:12 RDW 13.0 % (11.5-14.5) 07/25/17 07:12 Plt Count 249 K/uL (130-400) 07/25/17 07:12 MPV 9.0 fL (7.2-11.7) 07/25/17 07:12 Neut % (Auto) 49.6 % (50.0-75.0) L 07/25/17 07:12 Lymph % (Auto) 37.4 % (20.0-40.0) 07/25/17 07:12 [place] % (Auto) 9.1 % (0.0-10.0) 07/25/17 07:12 Eos % (Auto) 3.1 % (0.0-4.0) 07/25/17 07:12 Baso % (Auto) 0.8 % (0.0-2.0) 07/25/17 07:12 Neut # 3.7 K/uL (1.8-7.0) 07/25/17 07:12 Lymph # 2.8 K/uL (1.0-4.3) 07/25/17 07:12 [place] # 0.7 K/uL (0.0-0.8) 07/25/17 07:12 Eos # 0.2 K/uL (0.0-0.7) 07/25/17 07:12 Baso # 0.1 K/uL (0.0-0.2) 07/25/17 07:12 PT 11.6 SECONDS (9.7-12.2) 07/23/17 17:32 INR 1.0 07/23/17 17:32 APTT 34 SECONDS (21-34) 07/23/17 17:32 Puncture Site Lba 07/23/17 18:20 pCO2 26 mm/Hg (35-45) L 07/23/17 18:20 pO2 124 mm/Hg (80-100) H 07/23/17 18:20 HCO3 15.3 mmol/L (21-28) L 07/23/17 18:20 ABG pH 7.29 (7.35-7.45) L 07/23/17 18:20 ABG Total CO2 13.3 mmol/L (22-28) L 07/23/17 18:20 ABG O2 Saturation 97.3 % (95-98) 07/23/17 18:20 ABG Base Excess -12.3 mmol/L (-2.0-3.0) L 07/23/17 18:20 ABG Hemoglobin 14.5 g/dL (11.7-17.4) 07/23/17 18:20 ABG Carboxyhemoglobin 0.3 % (0.5-1.5) L 07/23/17 18:20 POC ABG HHb (Measured) 2.7 % (0.0-5.0) 07/23/17 18:20 ABG Methemoglobin 0.1 % (0.0-3.0) 07/23/17 18:20 [place] Test Yes 07/23/17 18:20 VBG pH 7.17 (7.32-7.43) L* 07/23/17 17:25 VBG pCO2 50 mmHg (40-60) 07/23/17 17:25 VBG HCO3 14.4 mmol/L 07/23/17 17:25 VBG Total CO2 19.7 mmol/L (22-28) L 07/23/17 17:25 VBG O2 Sat (Calc) 19.2 % (40-65) L 07/23/17 17:25 VBG Base Excess -10.4 mmol/L (0.0-2.0) L 07/23/17 17:25 VBG Potassium 3.9 mmol/L (3.6-5.2) 07/23/17 17:25 A-a O2 Difference -7.0 mm/Hg 07/23/17 18:20 Respiratory Index -0.1 07/23/17 18:20 Hgb O2 Saturation 96.9 % (95.0-98.0) 07/23/17 18:20 Sodium 137.0 mmol/l (132-148) 07/23/17 17:25 Chloride 108.0 mmol/L (98-107) H 07/23/17 17:25 Glucose 225 mg/dl (75-110) H 07/23/17 17:25 Lactate 1.2 mmol/L (0.7-2.1) 07/23/17 17:25 FiO2 21.0 % 07/23/17 18:20 Crit Value Called To Doyle aaron 07/23/17 17:25 Crit Value Called By Sherrill naik assistant manager of operations 07/23/17 17:25 Crit Value Read Back Y 07/23/17 17:25 Blood Gas Notified Time 1730 07/23/17 17:25 Sodium 132 mmol/L (132-148) 07/27/17 11:46 Potassium 4.3 mmol/L (3.6-5.2) 07/27/17 11:46 Chloride 107 mmol/L (98-107) 07/27/17 11:46 Carbon Dioxide 17 mmol/L (22-30) L 07/27/17 11:46 Anion Gap 13 (10-20) 07/27/17 11:46 BUN 19 mg/dL (9-20) 07/27/17 11:46 Creatinine 1.0 mg/dL (0.8-1.5) 07/27/17 11:46 Est GFR ( Amer) > 60 07/27/17 11:46 Est GFR (Non-Af Amer) > 60 07/27/17 11:46 POC Glucose (mg/dL) 220 mg/dL (65-110) H 07/27/17 11:04 Random Glucose 210 mg/dL (75-110) H 07/27/17 11:46 Lactic Acid 0.9 mmol/L (0.7-2.1) 07/23/17 17:32 Calcium 9.2 mg/dl (8.6-10.4) 07/27/17 11:46 Phosphorus 2.1 mg/dL (2.5-4.5) L 07/24/17 17:08 Magnesium 1.7 mg/dL (1.6-2.3) 07/25/17 07:12 Total Bilirubin 0.5 mg/dL (0.2-1.3) 07/25/17 07:12 AST 16 U/L (17-59) L D 07/25/17 07:12 ALT 29 U/L (21-72) 07/25/17 07:12 Alkaline Phosphatase 55 U/L (38-126) 07/25/17 07:12 Total Protein 5.7 g/dL (6.3-8.3) L 07/25/17 07:12 Albumin 3.2 g/dL (3.5-5.0) L D 07/25/17 07:12 Globulin 2.5 gm/dL (2.2-3.9) 07/25/17 07:12 Albumin/Globulin Ratio 1.3 (1.0-2.1) 07/25/17 07:12 Procalcitonin < 0.05 NG/ML (0.19-0.49) L 07/25/17 16:51 Venous Blood Potassium 3.9 mmol/L (3.6-5.2) 07/23/17 17:25 Urine Color Colorless (YELLOW) 07/25/17 05:11 Urine Clarity Clear (Clear) 07/25/17 05:11 Urine pH 9.0 (5.0-8.0) 07/25/17 05:11 Ur Specific [place] 1.008 (1.003-1.030) 07/25/17 05:11 Urine Protein Negative mg/dL (NEGATIVE) 07/25/17 05:11 Urine Glucose (UA) 3+ mg/dL (Normal) H 07/25/17 05:11 Urine Ketones Negative mg/dL (NEGATIVE) 07/25/17 05:11 Urine Blood Negative (NEGATIVE) 07/25/17 05:11 Urine Nitrate Negative (NEGATIVE) 07/25/17 05:11 Urine Bilirubin Negative (NEGATIVE) 07/25/17 05:11 Urine Urobilinogen Normal mg/dL (0.2-1.0) 07/25/17 05:11 Ur Leukocyte Esterase Neg [place]/uL (Negative) 07/25/17 05:11 Urine WBC (Auto) 1 /hpf (0-5) 07/25/17 05:11 Urine RBC (Auto) < 1 /hpf (0-3) 07/25/17 05:11 Urine Bacteria Rare (<OCC) 07/25/17 05:11 Urine Osmolality 310 mosm/kg (300-1000) 07/24/17 01:11 Ur Random Creatinine 16.6 mg/dL 07/24/17 15:16 Ur Random Sodium 71 mmol/L 07/24/17 01:11 Ur Random Potassium 15.2 mmol/L 07/24/17 01:11 Ur Random Phosphorus 12.3 mg/dL 07/24/17 15:16 Urine Chloride 84 mmol/L (32-290) 07/24/17 01:11 Salicylates < 1.0 mg/dL 1 07/23/17 18:55 Alcohol, Quantitative < 20 mg/dl (0-10) H 07/23/17 18:48 Hepatitis A IgM Ab Negative (NEGATIVE) 07/24/17 17:08 Hep Bs Antigen Positive (NEGATIVE) 07/24/17 17:08 Hep Bs Ag Neutralizatn Confirmed positive H 07/24/17 17:08 Hep B Core IgM Ab Negative (NEGATIVE) 07/24/17 17:08 Hepatitis C Antibody Negative (NEGATIVE) 07/24/17 17:08 HIV 1&2 Antibody Screen Negative (NEGATIVE) 07/25/17 16:51 - Hospital Course Hospital Course: Pt is feeling better, Off tenofovir, Patient is seen and examined. Alert, oriented, ambulatory. Denies sob or chest pains. CO2 17 today, plan to discharge home on sodium bicarb orally. Advised to follow up with PMD Dr. Jimenez in 1 week. Also advised to follow up with DR Adamson in 1 week. Discharge Exam - Head Exam Head Exam: NORMAL INSPECTION, NORMOCEPHALIC - Eye Exam Eye Exam: EOMI, Normal appearance, PERRL Pupil Exam: NORMAL ACCOMODATION, PERRL - ENT Exam ENT Exam: Mucous Membranes Moist - Respiratory Exam Respiratory Exam: Chest Wall Tenderness, NORMAL BREATHING PATTERN - Cardiovascular Exam Cardiovascular Exam: REGULAR RHYTHM, +S1, +S2 - GI/Abdominal Exam GI & Abdominal Exam: Normal Bowel Sounds - Rectal Exam Rectal Exam: Deferred - Neurological Exam Neurological exam: Alert, CN II-XII Intact, Normal Gait, Oriented x3, Reflexes Normal - Psychiatric Exam Psychiatric exam: Normal Affect, Normal Mood Discharge Plan - Discharge Medications Prescriptions: Sodium Bicarbonate Tab 650 mg PO Q8 #90 tab - Follow Up Plan Condition: FAIR Disposition: HOME/ ROUTINE Instructions: Sodium Bicarbonate (By mouth), Dysuria (GEN), Metabolic Acidosis (GEN) Referrals: Collette Hightower MD [Staff Provider] - Danny Martin MD [Staff Provider] - Fer Adamson MD [Staff Provider] -
--- NOTE | 2017-07-29 21:30 | CON ---
DATE: FOLLOWUP RENAL CONSULTATION LOCATION: The patient is located in room #353, bed A. REQUESTED BY: Dr. Danny Martin. REASON FOR FOLLOWUP: Metabolic acidosis, diabetes, and chronic hepatitis B, for further evaluation. HISTORY OF PRESENT ILLNESS: Mr. Diehl is a 71-year-old elderly male with a past medical history significant for diabetes, chronic hepatitis B, and glaucoma, who was started recently on Diamox 3 days prior to the admission and also, on tenofovir for chronic hepatitis B, who is receiving medication from Maria E, self-medicated, who was admitted with hypothermia and dysuria and also, found to have severe metabolic acidosis. The patient was initially started on IV bicarbonate drip, which improved his bicarbonate and subsequently discontinued. The patient was restarted on Diamox for glaucoma. The patient is not in acute distress. Denies any headache or dizziness. Denies any chest pain or palpitation. Denies any fever or cough. No abdominal pain. No nausea, no vomiting or diarrhea. PHYSICAL EXAMINATION VITAL SIGNS: This morning as follows: Blood pressure 136/80, pulse 75, respirations 20, temperature 97.4, saturations 96%, height 5 feet 6 inches, and weight is 132 pounds. GENERAL: Mr. Diehl is a 71-year-old elderly male, moderately built and moderately nourished, not in acute distress. HEENT: Pupils are normal and reactive to light and accommodation. Conjunctivae are pink. Sclerae are anicteric. Tongue is moist. Trachea is midline. LUNGS: Symmetric on both sides. Bilateral breath sounds are present. Clear on auscultation. CARDIOVASCULAR SYSTEM: [place] at the fifth intercostal space, midclavicular line. S1, S2 audible. No murmur or gallop. ABDOMEN: Normal in appearance. Soft, tympanic. No guarding. No rigidity. No hepatosplenomegaly. CENTRAL NERVOUS SYSTEM: The patient is alert, awake, and oriented x3. Nonfocal neuro examination. Cranial nerves II through XII are grossly intact. Sensory and motor system is within normal limits. EXTREMITIES: No cyanosis. No clubbing. No edema. CURRENT MEDICATIONS: Include as follows: Restoril 7.5 mg p.o. at bedtime, Janumet one tablet b.i.d., Actos one tablet p.o. daily, Protonix 40 mg daily, Amaryl 4 mg p.o. b.i.d., ferrous sulfate one tablet daily, Lipitor 10 mg at bedtime, and sodium bicarbonate 650 mg p.o. q.8 hours. LABORATORY DATA: His current laboratory data include as follows: As of 07/27/2017, sodium 132, potassium 4.3, chloride 107, CO2 17, BUN 19, creatinine 1.0, glucose 220, and calcium 9.2. Fractional excretion of the phosphorus is about 6.3. ASSESSMENT: In summary, Mr. Diehl is a 71-year-old elderly male with a history of type 2 diabetes, hyperlipidemia, chronic hepatitis B - surface antigen positive, on tenofovir and glaucoma - on Diamox, who was admitted with dysuria and hypothermia - being treated for possible sepsis and also, bilateral nephrolithiasis with low bicarbonate. 1. Hyperchloremic metabolic acidosis, most likely secondary to medication - secondary to tenofovir, cannot rule out secondary to acetazolamide, also rule out Fanconi syndrome secondary to tenofovir and due to low serum phosphorus and also phosphaturia. 2. Nephrolithiasis. 3. Diabetes. 4. Glaucoma. PLAN: Continue his current medications and continue sodium bicarbonate 650 mg p.o. q.8 hours. The patient can be followed as an outpatient and follow with ID for hepatitis B management. Case discussed with the nurse practitioner, Piedad. Thank you for allowing me to participate in your patient's care. Manav Soriano MD
== END 2017-07-27 14:20 | disposition home or self-care (01) | DRG 641 ==
LOC: C.ER 15:16 → EDBD 15:16 → C.9E 18:49 → C.3T 19:31 → OBSVTOIN 07-25 16:14
PROVIDERS: ADMIT Internal Medicine; ATTEND Internal Medicine
DX: E87.2 Acidosis (principal); E83.39 Other disorders of phosphorus metabolism; B18.1 Chronic viral hepatitis B without delta-agent; E78.5 Hyperlipidemia, unspecified; Z87.442 Personal history of urinary calculi; E11.9 Type 2 diabetes mellitus without complications; T37.5X5A Adverse effect of antiviral drugs, initial encounter; H40.9 Unspecified glaucoma; N20.0 Calculus of kidney; Z79.84 Long term (current) use of oral hypoglycemic drugs; R30.0 Dysuria

== ENCOUNTER 2018-01-14 07:21 | Day surgery (SDC) | payer MEDICARE ==
[2018-01-11 09:28] VITALS: BMI 20.9
[2018-01-14] MEDS ORDERED: Propofol 10 mg/ml Inj (20 ML) ONE ×2 (09:13→09:44)
--- NOTE | 2018-01-14 09:34 | CP.SDSHP ---
Same Day Surgery H & P - History Proposed Procedure: Screening colonoscopy Pre-Op Diagnosis: Screening for colorectal cancer - Previous Medical/Surgical History Endocrine/Metabolic: Diabetes Misc: Hepatitis, Other Previous Surgical History: Appendenctomy, cataract surgery - Allergies Allergies: Allergies No Known Allergies Allergy (Verified 01/14/18 07:48) - Current Medications Current Medications: See reconciliation sheet - Physical Exam General Appearance: WD WN male in NAD Vital Signs: Vital Signs 01/14/18 08:04 Temperature 97.5 F L Pulse Rate 59 L Respiratory 19 Rate Blood Pressure 141/63 O2 Sat by Pulse 100 Oximetry Mental Status: Alert & Oriented x3 Neuro: WNL Heart: WNL Lungs: WNL GI: WNL - {Optional Preform as Required} Abdomen: WNL - Impression Impression: Screening for colorectal cancer Pt. Evaluated Today:Candidate for Anesthesia & Procedure: Yes - Date & Time Date: 01/14/18 Time: 09:34 Short Stay Discharge - Short Stay Discharge Admitting Diagnosis/Reason for Visit: ENCOUNTER FOR SCREENING FOR MALIGNANT NEOPLASM OF Disposition: HOME/ ROUTINE
[2018-01-14 10:34] VITALS: TEMP 96.8
[2018-01-14 11:23] VITALS: O2SAT 98
[2018-01-14 11:33] VITALS: BP 143/62; PULSE 56; RESP 18
== END 2018-01-14 11:25 | disposition home or self-care (01) ==
LOC: C.ENDO 07:21
PROVIDERS: ATTEND Internal Medicine Gastroenterology
DX: Z12.11 Encounter for screening for malignant neoplasm of colon (principal); K64.0 First degree hemorrhoids; K57.30 Diverticulosis of large intestine without perforation or abscess without bleeding
CPT/HCPCS: 45378; 82948; J2704

== ENCOUNTER 2018-10-16 11:50 | Outpatient (CLI) | payer MEDICARE | END 2018-10-16 11:51 | disposition home or self-care (01) | LOC: C.RADIC 11:50 → C.RADH 11:51 | DX: N20.1 Calculus of ureter (principal) ==